=== PATIENT | male | born 1960 | race Caucasian/White ===

== ENCOUNTER 2017-09-13 18:18 | Observation (INO) ==
--- NOTE | 2017-09-13 19:57 | Emergency Department Note ---
Disposition Clinical Impression: Stage 1 chronic kidney disease Dyspnea Qualifiers: Dyspnea type: shortness of breath Qualified Code(s): R06.02 - Shortness of breath; R06.00 - Dyspnea, unspecified; R06.01 - Orthopnea Disposition: Admitted As Inpatient Condition: Undetermined Referrals: Silver Choi DO [Primary Care Provider] - Forms: ED Satisfaction Letter Time of Disposition: 20:45 SOB HPI - General Chief Complaint: ED Shortness of Breath/Dyspnea Stated Complaint: BRITTNI Time Seen by Provider: 09/13/17 19:39 Source: patient Mode of arrival: ambulatory Limitations: no limitations Nursing Notes Reviewed: Yes Vital Signs Reviewed: Yes - History of Present Illness 57-year-old male with history of atrial fibrillation, NM, CHF arrives [facility] emergency department complaining of shortness of breath after waking at roughly 4:30 in the morning. The patient states this feels like nothing he has experienced in the past. The patient denies any active chest pain but does admit to this difficulty breathing. The patient is not a diabetic complaints of no other concerns including no fevers, no chills, no abdominal pain, no chest pain, no unilateral leg swelling, no recent surgeries, no history of DVT or PE. Probably in the room at this time with an O2 saturation of 96% on room air. He is in no respiratory distress at this time. Pt Subjective Complaint: shortness of breath Onset (ago): day(s) (18) Severity: mild Consistency/Duration: intermittent Improves with: nothing Worsens with: nothing Known history of: congestive heart failure Treatment prior to arrival: none Cough present: No Sputum production: No - Related Data Home oxygen amount: none Home Medications Medication Instructions Recorded Confirmed Albuterol Sulfate [Albuterol 2 puff IH Q4HR PRN 06/20/15 08/18/16 Inhaler] Aspirin 81 mg PO DAILY 06/20/15 08/18/16 Atorvastatin [Lipitor] 80 mg PO DAILY 06/20/15 08/18/16 Diltiazem CD (24hr) [Cardizem CD] 240 mg PO QAM 06/20/15 08/18/16 Ipratropium/Albuterol Neb [Duoneb] 3 ml IH Q6HR PRN 06/20/15 08/18/16 Lisinopril [Zestril] 5 mg PO QAM 06/20/15 08/18/16 Metoprolol XL (24 HR) Succ [Toprol 25 mg PO QAM 06/20/15 08/18/16 XL] Tizanidine [Zanaflex] 4 mg PO QPM 06/20/15 08/18/16 Tiotropium [Spiriva] 1 puff IH DAILY 07/30/15 08/18/16 Cholecalciferol (D-3) [Vitamin D] 5,000 unit PO DAILY 08/18/16 08/18/16 Furosemide [Lasix] 40 mg PO DAILY 08/18/16 08/18/16 [place]-3/Dha/Epa/Fish Oil [[place] 3 500 mg PO DAILY 08/18/16 08/18/16 500 Softgel] Pantoprazole Sodium [Protonix] 40 mg PO DAILY 08/18/16 08/18/16 Tamsulosin HCl [Flomax] 0.4 mg PO DAILY 08/18/16 08/18/16 Ubidecarenone [Co Q10] 100 mg PO DAILY 08/18/16 08/18/16 Warfarin [Coumadin] 2 mg PO 3XW MDD SUN,THURS,SAT 08/18/16 08/18/16 Warfarin [Coumadin] 4 mg PO 4XW MDD MON,TUES,WED,FRI 08/18/16 08/18/16 Previous Rx's Medication Instructions Recorded Esomeprazole Magnesium [Nexium] 40 mg PO BID #60 09/30/15 Azithromycin [Azithromycin 6-Tab 250 mg PO PER PKG DI #6 tab 08/21/16 Pack] Warfarin [Coumadin] 3 mg PO QPM tablet 08/21/16 Albuterol Sulfate [Albuterol 2 puff IH Q4HR PRN #1 hfa.aer.ad 01/22/17 Inhaler] Azithromycin [Azithromycin 6-Tab 250 mg PO PER PKG DI #6 tab 01/22/17 Pack] predniSONE [PredniSONE] 60 mg PO ONCE #15 tablet 01/22/17 Albuterol Sulfate [Albuterol 1 puff IH Q6HR PRN #1 inhaler 05/13/17 Inhaler] Doxycycline 100 mg PO BID #14 capsule 05/13/17 predniSONE [PredniSONE] 60 mg PO DAILY #4 tablet 05/13/17 Allergies Allergy/AdvReac Type Severity Reaction Status Date / Time No Known Allergies Allergy Verified 05/13/17 05:08 All systems ED: reviewed and negative except as stated. Constitutional: Denies: fever, chills, weakness ENT ED: Denies: congestion Cardiovascular: Denies: chest pain Respiratory: Reports: dyspnea Gastrointestinal: Denies: abdominal pain, nausea, vomiting Genitourinary: Denies: urgency, dysuria Musculoskeletal: Denies: back pain Integumentary: Denies: rash Neurological: Denies: headache, weakness, numbness, paresthesias, confusion Past Medical History - Past Medical History Attestation: Yes The following information was validated with the patient. Source: patient, old records reviewed, obtained from family Medical history: Reports: arthritis, atrial fibrillation, cancer, COPD, coronary artery disease, GERD, GI bleed, hepatitis, hyperlipidemia, hypertension , kidney stones, liver disease, malignancy, myocardial infarction, renal disease Surgical history: Reports: angioplasty/stent, coronary bypass (CABG), other ( Status post bone spur surgery. Status post left thoracotomy decortication.) Psychiatric history: Reports: no psych history - Social History Smoking Status: Former smoker Smokeless Tobacco Status: No Alcohol use: Reports: none Drug use: Reports: none Physical Exam - General Limitations: no limitations General appearance: alert, in no apparent distress, appears intoxicated - Head Head exam: atraumatic, normocephalic, normal inspection - Eye Eye exam: Present: normal appearance, PERRL, EOMI - ENT ENT exam: normal exam, normal oropharynx, mucous membranes moist - Neck Neck exam: Present: normal inspection, full ROM, trachea midline - Chest Chest inspection: Present: normal inspection, symmetric chest wall rise - Respiratory Respiratory exam: Present: other (Course breath sounds to auscultation) - Cardiovascular Cardiovascular exam: Present: regular rate, irregular rhythm, normal heart sounds - Abdominal Exam Abdominal exam: Present: soft, Non-Tender. Absent: tenderness, distention, guarding, rebound, rigidity - Extremities Exam Extremities exam: Present: normal inspection, full ROM. Absent: tenderness, pedal edema - Neurological Exam Neurological exam: Present: alert, oriented X3 - Skin Skin exam: Present: warm, dry, intact, normal color Course Vital Signs Temperature 98.1 F 09/13/17 18:25 Pulse Rate 69 09/13/17 18:25 Respiratory Rate 16 09/13/17 18:25 Blood Pressure 138/75 11/16/17 18:25 O2 Sat by Pulse Oximetry 96 09/13/17 18:25 Temperature 98.1 F 09/13/17 18:25 Pulse Rate 68 09/13/17 20:24 Respiratory Rate 30 09/13/17 20:24 Blood Pressure 144/82 09/13/17 20:24 O2 Sat by Pulse Oximetry 97 09/13/17 20:24 Oxygen Delivery Oxygen Delivery Room Air Shortness of Breath/Dyspnea - MDM Narrative Medical decision making narrative: His workup here in the emergency department demonstrates no acute process. Given the patient has a history of NM with 2 stents placed back in 2011 or 2009 , we will admit the patient for ACS rule out. The patient's troponin is negative. Emergency department but he does have some nonspecific ST changes to include mild ST depression noted in the lateral leads that appears new from EKG from April 2017. Without any other acute findings, I am concerned about a ACS. We will admit the patient to the hospitalist service. The patient was accepted by Dr. Estevez. The patient agrees to plan. - Lab Data Lab results reviewed: Yes I reviewed the patient's lab results. Result diagrams: 09/13/17 20:00 09/13/17 20:00 Lab Results 09/13/17 09/13/17 09/13/17 Range/Units 20:00 20:00 20:00 WBC 5.8 (4.3-11.1) K/mcL RBC 4.28 (4.19-5.50) M/mcL Hgb 13.0 (12.9-16.9) g/dL Hct 37.6 (37.5-50.1) % MCV 87.9 (83.0-100.0) fL MCH 30.4 (28.0-33.3) pg MCHC 34.6 (31.6-35.5) g/dL RDW 13.6 (11.5-14.5) % Plt Count 141 (140-400) K/mcL MPV 10.3 (9.4-12.4) fL Immature Gran % 0.7 (0-4) % Seg Neutrophils % 65.9 % Lymphocytes % 21.3 % Monocytes % 8.3 % Eosinophils % 2.8 % Basophils % 1.0 % Neutrophils # 3.8 (1.6-8.9) K/mcL Lymphocytes # 1.2 (0.6-4.6) K/mcL Monocytes # 0.5 (0.0-1.3) K/mcL Eosinophils # 0.2 (0.0-0.6) K/mcL Basophils # 0.1 (0.0-0.2) K/mcL PT (9.4-12.1) Seconds INR APTT (26.0-36.0) Seconds Sodium 140 (136-145) mEq/L Potassium 3.8 (3.5-4.5) mEq/L Chloride 104 (98-109) mEq/L Carbon Dioxide 27 (19-29) mEq/L BUN 19 (8-26) mg/dL Creatinine 1.45 H (0.72-1.25) mg/dL Est GFR ( Amer) > 60 (> 60) Est GFR (Non-Af Amer) 50 L (> 60) BUN/Creatinine Ratio 13 (6-26) Glucose 94 (70-99) mg/dL Calculated Osmolality 292 (280-300) Calcium 9.3 (8.6-10.8) mg/dL Troponin I 0.01 (0-0.03) ng/mL 09/13/ Range/Units 20:00 WBC (4.3-11.1) K/mcL RBC (4.19-5.50) M/mcL Hgb (12.9-16.9) g/dL Hct (37.5-50.1) % MCV (83.0-100.0) fL MCH (28.0-33.3) pg MCHC (31.6-35.5) g/dL RDW (11.5-14.5) % Plt Count (140-400) K/mcL MPV (9.4-12.4) fL Immature Gran % (0-4) % Seg Neutrophils % % Lymphocytes % % Monocytes % % Eosinophils % % Basophils % % Neutrophils # (1.6-8.9) K/mcL Lymphocytes # (0.6-4.6) K/mcL Monocytes # (0.0-1.3) K/mcL Eosinophils # (0.0-0.6) K/mcL Basophils # (0.0-0.2) K/mcL PT 27.8 H (9.4-12.1) Seconds INR 2.5 APTT 40.4 H (26.0-36.0) Seconds Sodium (136-145) mEq/L Potassium (3.5-4.5) mEq/L Chloride (98-109) mEq/L Carbon Dioxide (19-29) mEq/L BUN (8-26) mg/dL Creatinine (0.72-1.25) mg/dL Est GFR ( Amer) (> 60) Est GFR (Non-Af Amer) (> 60) BUN/Creatinine Ratio (6-26) Glucose (70-99) mg/dL Calculated Osmolality (280-300) Calcium (8.6-10.8) mg/dL Troponin I (0-0.03) ng/mL - Radiology Data Radiology results reviewed: Yes I reviewed the patient's radiology results. - EKG Data EKG attestation: Yes I reviewed and interpreted this EKG. EKG results narrative: Heart rate 62 bpm. QTc 439 ms. Normal axis. Atrial fibrillation. No ST elevation but mild ST depression noted in leads V4 and V5 with nonspecific changes otherwise from EKG performed in 05/13/2017.
[2017-09-13] MEDS ORDERED: Aspirin 325 MG TABLET PO ONE (20:01)
[2017-09-13 20:11] LABS: Basophils # 0.1 K/mcL (0.0-0.2); Eosinophils # 0.2 K/mcL (0.0-0.6); Eosinophils % 2.8 %; Hematocrit 37.6 % (37.5-50.1); Immature Granulocytes % 0.7 % (0-4); Lymphocytes # 1.2 K/mcL (0.6-4.6); Lymphocytes % 21.3 %; Mean Corpuscular HGB Conc 34.6 g/dL (31.6-35.5); Mean Corpuscular Hemoglobin 30.4 pg (28.0-33.3); Mean Corpuscular Volume 87.9 fL (83.0-100.0); Mean Platelet Volume 10.3 fL (9.4-12.4); Monocytes # 0.5 K/mcL (0.0-1.3); Monocytes % 8.3 %; Neutrophils # 3.8 K/mcL (1.6-8.9); Platelet Count 141 K/mcL (140-400); Red Blood Count 4.28 M/mcL (4.19-5.50); Red Cell Distribution Width 13.6 % (11.5-14.5); Segmented Neutrophils % 65.9 %
--- NOTE | 2017-09-13 20:13 | Emergency Department Note ---
START Narrative - START START: I examined this patient and my medical decision-making was reviewed with the emergency medicine resident. I agree with the documented findings, disposition and treatment plan as described except to the extent set forth below. Patient seen with emergency medicine resident Dr. Maxim Sanchez, Please see a copy of his note for details of the H&P, ED evaluation, management and disposition. I have independently evaluated the patient and confirmed appropriate portions of the history and physical exam. Briefly: 57 year old male presents via private vehicle for shortness of breath and chest fluttering. History of atrial fibrillation. Patient has atrial fibrillation on EKG which is rate controlled. Portable chest x-ray reviewed at that site shows a left lower lobe effusion which is old per radiologist review. Patient's last stress test was at least 2011. Patient has been complaining of some chest pain and dyspnea on exertion as well. Patient will be worked up for cardiac and admitted to the hospitalist. Providing 30 minutes of critical care service for this patient. Admission disposition pending
[2017-09-13 20:16] LABS: INR 2.5; Prothrombin Time 27.8 Seconds (9.4-12.1)
[2017-09-13 20:19] LABS: Activated Partial Thrombo Time 40.4 Seconds (26.0-36.0)
[2017-09-13 20:24] LABS: BUN/Creatinine Ratio 13 (6-26); Blood Urea Nitrogen 19 mg/dL (8-26); Calcium 9.3 mg/dL (8.6-10.8); Carbon Dioxide 27 mEq/L (19-29); Chloride 104 mEq/L (98-109); Glucose 94 mg/dL (70-99); Osmolality,Calculated 292 (280-300); Potassium 3.8 mEq/L (3.5-4.5); Sodium 140 mEq/L (136-145); eGFR For African Americans > 60 (> 60); eGFR For Non-African Americans 50 (> 60)
[2017-09-13] MEDS ORDERED: *HR* OxyCODONE/APAP 5/325 TABLET PO PRN (22:36)
[2017-09-13] MEDS ORDERED: tiZANidine 4 MG TABLET PO PRN (22:36)
[2017-09-13] MEDS ORDERED: Fluticasone Propionate Nasal 50 MCG/SPRAY BOTTLE NS PRN (22:36)
[2017-09-13] MEDS ORDERED: traZODone 50 MG TABLET PO PRN (22:36)
[2017-09-13] MEDS ORDERED: Ipratropium/Albuterol Neb 3 ML IH PRN (22:36)
[2017-09-13] MEDS ORDERED: Naloxone 0.4 MG/ML INJ IVP PRN (22:39)
--- NOTE | 2017-09-13 23:03 | Internal Med History&Physical ---
<Zia Tamayo J - Last Filed: 09/13/17 23:26> Date of Encounter: 09/13/17 Time of Encounter: 23:00 Assessment and Plan (1) Acute exacerbation of chronic obstructive pulmonary disease (COPD) Current visit: Yes Status: Acute Inspiratory and expiratory wheezes with shortness of breath. Denies any chest pain cardiac workup negative thus far. Appears to have an acute exacerbation of COPD. CBC unremarkable. Does not appear to be exacerbated by infectious source. Hold off on prophylactic antibiotic therapy for now. EGD report from physician indicated concern for chest pain. The patient denies having any chest pain at all. However due to extensive cardiac history we will continue to trend troponin to rule out cardiac cause of shortness of breath. Continue albuterol, DuoNeb every 4 hours scheduled Solu-Medrol 40 mg IV push every 8 hours Continuous telemetry, continuous O2 monitoring (2) CAD (coronary artery disease) Current visit: Yes Status: Chronic Continue aspirin and statin Qualifiers: Coronary Disease-Associated Artery/Lesion type: [place] artery [place] vs. transplanted heart: [place] heart Associated angina: without angina Qualified Code(s): I25.10 - Atherosclerotic heart disease of [place] coronary artery without angina pectoris (3) A-fib Current visit: Yes Status: Chronic Stable rate control and 62. EKG. Continue Coumadin with pharmacy to dose, calcium channel damaris per home dose Qualifiers: Atrial fibrillation type: unspecified Qualified Code(s): I48.91 - Unspecified atrial fibrillation (4) HTN (hypertension) Current visit: Yes Status: Chronic Stable, continue valsartan, beta damaris, calcium channel damaris Qualifiers: Hypertension type: essential hypertension Qualified Code(s): I10 - Essential (primary) hypertension (5) DVT prophylaxis Current visit: Yes Status: Acute Continue Coumadin pharmacy to dose Internal Medicine - H&P: HPI Chief complaint: Acute shortness of breath Admitted From: Home Plans for Post Hospital Care: Home History of present illness: Mr. Lynch is a 57 year old male with a PMH of A. fib, CA requiring stent placement, CHF, COPD, CAD, HTN, and CABG. Presents to [facility] today with a chief complaint of shortness of breath which began approximately 4:30 this morning. Patient reports that he began experiencing intermittent fevers and chills with lightheadedness and shortness of breath. He also reports he has noticed some bilateral lower extremity swelling over the last week. Denies any diaphoresis, cough, chest pains, unilateral extremity tenderness or swelling, palpitations, tachycardia. BNP 204 troponin negative at 0.01. Due to extensive cardiac history he will be admitted and worked up to rule out ACS Past Med Surg Social Fam HX - Past Medical History Medical history: arthritis, atrial fibrillation, cancer, COPD, coronary artery disease, GERD, GI bleed, hepatitis, hyperlipidemia, hypertension, kidney stones , liver disease, malignancy, myocardial infarction, renal disease Psychiatric history: no psych history - Past Surgical History Surgical History: angioplasty/stent, coronary bypass (CABG), other (Status post bone spur surgery. Status post left thoracotomy decortication.) - Social History Smoking Status: Former smoker Smokeless Tobacco Status: No Alcohol use: none Drug use: none - Family History Father Adopted: No Living Status: Hx Family Cardiac Disorders: Yes (mi) Hx Family Respiratory Disorders: No Hx Family Cancer: Yes (Lung) Hx Family GI Disorders: No Hx Family Endocrine Disorder: No Hx Family Neuromuscular Disorders: No Hx Family Neurologic Disorders: No Hx Family HEENT Disorders: No Hx Family Autoimmune Disorders: No Mother Hx Family Endocrine Disorder: Yes (Diabetes) Internal Medicine - H&P: Meds Aspirin 81 mg PO DAILY 06/20/15 [History] Diltiazem CD (24hr) [Cardizem CD] 240 mg PO QAM 06/20/15 [History] Ipratropium/Albuterol Neb [Duoneb] 3 ml IH Q6HR PRN 06/20/15 [History] Metoprolol XL (24 HR) Succ [Toprol XL] 25 mg PO QAM 06/20/15 [History] Tizanidine [Zanaflex] 4 mg PO Q8H PRN 06/20/15 [History] Tiotropium [Spiriva] 18 mcg IH DAILY 07/30/15 [History] Esomeprazole Magnesium [Nexium] 40 mg PO BID #60 09/30/15 [Rx] Pantoprazole Sodium [Protonix] 40 mg PO DAILY 08/18/16 [History] Tamsulosin HCl [Flomax] 0.4 mg PO DAILY 08/18/16 [History] Warfarin [Coumadin] 2 mg PO ORTEZ 08/18/16 [History] Warfarin [Coumadin] 4 mg PO [id number] 10/21/16 [History] Albuterol Sulfate [Albuterol Inhaler] 2 puff IH Q4HR PRN #1 hfa.aer.ad 01/22/17 [Rx] Atorvastatin Calcium [Lipitor] 80 mg PO HS 09/13/17 [History] Fluticasone Propionate Nasal [Flonase] 50 mcg NS DAILY PRN 09/13/17 [History] OxyCODONE/APAP 5/325 [Percocet 5/325 MG] 1 each PO Q6H PRN 09/13/17 [History] Valsartan [Diovan] 40 mg PO DAILY 09/13/17 [History] traZODone [TraZODone] 50 mg PO HS PRN 09/13/17 [History] 3 Allergy/AdvReac Type Severity Reaction Status Date / Time No Known Allergies Allergy Verified 05/13/17 05:08 All Systems PM: A 10-system review of systems was performed and is negative for pertinent findings except as documented above in the HPI. - Constitutional Constitutional: as per HPI, chills, fever(s), no fatigue, no night sweats - EENT Eyes: no change in vision, no discharge, no pain, no photophobia Ears: no ear discharge, no ear pain, no tinnitus Nose, mouth and throat: no dysphagia, no nasal discharge, no neck pain, no sore throat - Cardiovascular Cardiovascular ROS IM: no chest pain, no diaphoresis, no dyspnea, no lightheadedness, no palpitations, no syncope - Respiratory Respiratory: dyspnea, no cough, no hemoptysis, no wheezing, no pain on inspiration, no chest congestion, no excessive phlegm production, no pain with cough - Gastrointestinal Gastrointestinal: no abdominal pain, no diarrhea, no hematemesis, no hematochezia, no melena, no nausea, no vomiting - Musculoskeletal Musculoskeletal ROS IM: no numbness, no tingling - Integumentary Integumentary IM: no rash, no unusual bruising - Neurological Neurological ROS: no confusion, no convulsions, no focal weakness, no numbness, no tingling, no tremor(s) - Hematologic/Lymphatic Hematologic/Lymphatic: no easy bruising - Constitutional Vitals: Temp Pulse Resp BP Pulse Ox 98.1 F 68 10 144/82 97 09/13/17 18:25 09/13/17 20:24 09/13/17 21:35 09/13/17 21:35 09/13/17 20:24 General appearance: Present: cooperative, A&O X 3, no acute distress, answers questions appropriately - Head Head exam: Present: atraumatic, normocephalic - Eye Eye exam: Present: PERRL, conjuntiva pink, sclera anicteric Pupils: Present: PERRL - Neck Neck exam general surgery: Present: supple, trachea midline. Absent: lymphadenopathy - Respiratory Respiratory exam: Present: decreased breath sounds, CTAB, prolonged expiratory phase, wheezes (Inspiratory and expiratory). Absent: accessory muscle use, rales, respiratory distress, rhonchi, tachypnea - Cardiovascular Cardiovascular exam: Present: RRR, +S1, +S2. Absent: diastolic murmur, gallop, rubs, systolic murmur - GI/Abdominal GI/Abdominal exam: Present: normal bowel sounds, soft, no peritoneal signs. Absent: distended, tenderness - Extremities Exam Extremities exam: Present: warm, radial pulses palpable and symmetrical. Absent : calf tenderness, cyanotic, pedal edema - Neurological Exam Neurological exam: Present: CN II-XII intact, oriented X3, no focal deficits. Absent: pronater drift, facial droop, speech deficit - Skin Skin exam: Present: dry, intact Internal Med - H&P Results - Labs CBC & Chem 7: 09/13/17 20:00 09/13/17 20:00 - EKG Data -: EKG Interpreted by Myself - EKG Data Prior EKG available for review: yes EKG comments: Atrial fibrillation rate control her rate is 62 09/13/17 23:07 - Diagnostic Studies Chest x-ray Status: image reviewed by me Additional comments: Blunting of costophrenic sulcus likely scarring <Marianela Liao - Last Filed: 09/14/17 04:07> Date of Encounter: 09/14/17 Internal Medicine - H&P: HPI History of present illness: Mr. Lynch is a 57 year old male All Systems PM: A 10-system review of systems was performed and is negative for pertinent findings except as documented above in the HPI. - Constitutional Vitals: Temp Pulse Resp BP Pulse Ox 97.9 F 77 16 101/60 95 09/14/17 03:04 09/14/17 03:04 09/14/17 03:04 09/14/17 03:04 09/14/17 03:04 Internal Med - H&P Results - Labs CBC & Chem 7: 09/14/17 02:42 09/14/17 02:42 Labs: Short CBC 09/14/17 Range/Units 02:42 WBC 6.2 (4.3-11.1) K/mcL Hgb 12.6 L (12.9-16.9) g/dL Hct 36.4 L (37.5-50.1) % Plt Count 126 L (140-400) K/mcL Neutrophils # 5.2 (1.6-8.9) K/mcL BMP 09/14/17 02:42 Sodium 140 Potassium 3.9 Chloride 106 Carbon Dioxide 27 BUN 18 Creatinine 1.47 H Glucose 124 H Calcium 8.9 Cardiac Enzymes 09/14/17 Range/Units 02:42 Troponin I 0.01 (0-0.03) ng/mL Liver Function 09/14/17 Range/Units 02:42 Total Bilirubin 0.9 (0.2-1.2) mg/dL AST 17 (5-34) Units/L ALT 19 (0-55) Units/L Alkaline Phosphatase 92 (38-126) Units/L Albumin 3.8 (3.5-5.0) g/dL - Attending Attestation I have seen and examined the patient independently. I have discussed with CHIP MACHINE OPERATOR Mr Tamayo regarding the management plan. Agree with the documentation. Pt has increased SOB from AM. Denies chest pain. Hx of COPD. Will treat pt as COPD exacerbation.
[2017-09-13] MEDS ORDERED: methylPREDNISolone 125 MG/2 ML VIAL IVP ONE (23:24)
[2017-09-13] MEDS: Ipratropium/Albuterol Neb 3 ML IH SCH (23:42)
[2017-09-14] MEDS ORDERED: MethylPREDNISolone 40 MG/ML VIAL IVP SCH
[2017-09-14 03:13] LABS: Basophils % 0.3 %; Eosinophils # 0.1 K/mcL (0.0-0.6); Hematocrit 36.4 % (37.5-50.1); Hemoglobin 12.6 g/dL (12.9-16.9); Immature Granulocytes % 0.3 % (0-4); Immature Platelets 3.2 % (1.1-6.1); Lymphocytes # 0.7 K/mcL (0.6-4.6); Mean Corpuscular HGB Conc 34.6 g/dL (31.6-35.5); Mean Corpuscular Hemoglobin 30.4 pg (28.0-33.3); Mean Corpuscular Volume 87.7 fL (83.0-100.0); Mean Platelet Volume 10.4 fL (9.4-12.4); Monocytes # 0.2 K/mcL (0.0-1.3); Monocytes % 2.6 %; Neutrophils # 5.2 K/mcL (1.6-8.9); Platelet Count 126 K/mcL (140-400); Red Blood Count 4.15 M/mcL (4.19-5.50); Red Cell Distribution Width 13.6 % (11.5-14.5); Segmented Neutrophils % 83.8 %
[2017-09-14 03:22] LABS: INR 3.1
[2017-09-14 03:32] LABS: Albumin 3.8 g/dL (3.5-5.0); Albumin/Globulin Ratio 1.6 (1.1-2.2); Bilirubin,Total 0.9 mg/dL (0.2-1.2); Calcium 8.9 mg/dL (8.6-10.8); Chol/HDL Ratio 4.8 (0-4.9); Globulin 2.4 g/dL (2.4-3.5); Potassium 3.9 mEq/L (3.5-4.5); Total Protein 6.2 g/dL (6.0-8.3)
[2017-09-14] MEDS: Ipratropium/Albuterol Neb 3 ML IH SCH ×6 (03:44→23:09)
[2017-09-14] MEDS: Diltiazem CD (24hr) 240 MG CAPSULE PO SCH (08:10)
[2017-09-14] MEDS: Metoprolol XL (24 HR) Succ 25 MG TAB.ER.24H PO SCH (08:10)
[2017-09-14] MEDS: Aspirin 81 MG TAB.CHEW PO SCH (08:10)
[2017-09-14] MEDS: MethylPREDNISolone 40 MG/ML VIAL IVP SCH ×2 (08:10→14:50)
[2017-09-14] MEDS: Valsartan 80 MG TABLET PO SCH (08:11)
[2017-09-14] MEDS ORDERED: Tiotropium 18 MCG inhalation IH SCH (09:00)
--- NOTE | 2017-09-14 16:28 | Internal Med Progress Note ---
Date of Encounter: 09/14/17 Time of Encounter: 16:25 - Assessment and plan (1) Acute exacerbation of chronic obstructive pulmonary disease (COPD) Current Visit: Yes Status: Acute Assessment and plan: Barry Lynch is a 57-year-old male with past medical history CAD, A. fib, COPD and hepatitis C who presented to [facility] on 09/13/2017 with complaints of shortness of breath. He was placed in observation status for acute COPD exacerbation. 1. COPD exacerbation: Suspected. Presented with worsening shortness of breath and wheezing. D-dimer negative, symptoms significantly improved with steroids and breathing treatments. No increase in sputum production, afebrile, no elevated WBC. No indication for ATB at this time. Cont IV steroids, nebs. Echo pending 2. Atrial fibrillation: per hx. Heart rate intermittently into low 100s. Overall rate controlled. Continue home CCB, BB. Pharmacy to dose Coumadin. 3. CAD: per hx. asymptomatic. Denies chest pain. Serial troponin negative. Continue ASA, BB, statin 4. Hepatits C: per hx. of LFTs normal. With abdominal distention/discomfort. ABD CT pending 5. CKD: per hx. Cr 1.4 which is slightly increased from baseline. Gentle IV fluids, avoid nephrotoxic agents as possible. Monitor repeat renal function. 5. DVT prophylaxis: Coumadin (2) A-fib Current Visit: Yes Status: Chronic Qualifiers: Atrial fibrillation type: unspecified Qualified Code(s): I48.91 - Unspecified atrial fibrillation (3) CAD (coronary artery disease) Current Visit: Yes Status: Chronic Qualifiers: Coronary Disease-Associated Artery/Lesion type: [place] artery [place] vs. transplanted heart: [place] heart Associated angina: without angina Qualified Code(s): I25.10 - Atherosclerotic heart disease of [place] coronary artery without angina pectoris (4) Hepatitis C Current Visit: No Status: Chronic Qualifiers: Viral hepatitis chronicity: chronic Hepatic coma status: without hepatic coma Qualified Code(s): B18.2 - Chronic viral hepatitis C - Subjective Interval history: Seen and examined at bedside, patient is new to me. Information obtained from chart review and patient report. Patient says he feels significantly improved although he does still have some intermittent shortness of breath abdominal pain. No chest pain. - Constitutional Vitals: Temp Pulse Resp BP Pulse Ox 97.8 F 94 95 117/77 97 09/14/17 15:13 09/14/17 15:13 09/14/17 16:13 09/14/17 15:13 09/14/17 16:13 General appearance: Present: cooperative, A&O X 3, morbidly obese, no acute distress, answers questions appropriately - Head Head exam: Present: atraumatic, normocephalic - Eye Eye exam: Present: PERRL, conjuntiva pink, sclera anicteric Pupils: Present: PERRL - Neck Neck exam general surgery: Present: supple, trachea midline. Absent: lymphadenopathy - Respiratory Respiratory exam: Present: CTAB. Absent: accessory muscle use, rales, rhonchi, wheezes - Cardiovascular Cardiovascular exam: Present: RRR, +S1, +S2. Absent: diastolic murmur, gallop, rubs, systolic murmur - GI/Abdominal GI/Abdominal exam: Present: normal bowel sounds, soft, no peritoneal signs. Absent: distended, tenderness - Extremities Exam Extremities exam: Present: warm, radial pulses palpable and symmetrical. Absent : calf tenderness, cyanotic, pedal edema - Neurological Exam Neurological exam: Present: CN II-XII intact, oriented X3, no focal deficits. Absent: pronater drift, facial droop, speech deficit - Skin Skin exam: Present: dry, intact Internal Medicine: Result - Labs CBC & Chem 7: 09/14/17 02:42 09/14/17 02:42 Labs: Short CBC 09/14/17 Range/Units 02:42 WBC 6.2 (4.3-11.1) K/mcL Hgb 12.6 L (12.9-16.9) g/dL Hct 36.4 L (37.5-50.1) % Plt Count 126 L (140-400) K/mcL Neutrophils # 5.2 (1.6-8.9) K/mcL BMP 09/14/17 02:42 Sodium 140 Potassium 3.9 Chloride 106 Carbon Dioxide 27 BUN 18 Creatinine 1.47 H Glucose 124 H Calcium 8.9 Cardiac Enzymes 09/14/17 09/14/17 Range/Units 02:42 08:27 Troponin I 0.01 0.01 (0-0.03) ng/mL Liver Function 09/14/17 Range/Units 02:42 Total Bilirubin 0.9 (0.2-1.2) mg/dL AST 17 (5-34) Units/L ALT 19 (0-55) Units/L Alkaline Phosphatase 92 (38-126) Units/L Albumin 3.8 (3.5-5.0) g/dL - ABG Interpretation ABG results: PT/INR, D-dimer PT 34.0 Seconds (9.4-12.1) H 09/14/17 02:42 D-Dimer < 215 ng/mLFEU (0-500) 09/14/17 13:21 Consult Discharge Plan - Plan Referrals: Silver Choi DO [Primary Care Provider] -
[2017-09-14] MEDS ORDERED: Warfarin perPT PO PRN (18:00)
--- NOTE | 2017-09-14 18:16 | Electrocardiograph Report ---
[place] [id number] Test Date: 2017-09-13 Pat Name: Barry Lynch Department: 104 Room: 3B39 Gender: M Commercial Sales Director: AM : 1960 Requested By: Peter Mcghee Order Number: [id number] Reading MD: Cristian Acuña MD Measurements Intervals [place] Rate: 62 P: [place]: 0 QRS: 41 QRSD: 102 T: 28 QT: 433 QTc: 439 Interpretive Statements ATRIAL FIBRILLATION Electronically Signed On 09-14-2017 18:14:27 EST by Cristian Acuña MD
[2017-09-14] MEDS: 0.9 % Sodium Chloride 1,000 ML IVC SCH (19:39)
[2017-09-15] MEDS: MethylPREDNISolone 40 MG/ML VIAL IVP SCH ×4 (00:06→23:21)
[2017-09-15 03:35] LABS: Hematocrit 35.1 % (37.5-50.1); Hemoglobin 12.1 g/dL (12.9-16.9); Mean Corpuscular HGB Conc 34.5 g/dL (31.6-35.5); Mean Corpuscular Hemoglobin 30.1 pg (28.0-33.3); Mean Corpuscular Volume 87.3 fL (83.0-100.0); Mean Platelet Volume 10.9 fL (9.4-12.4); Platelet Count 133 K/mcL (140-400); Red Blood Count 4.02 M/mcL (4.19-5.50); Red Cell Distribution Width 13.4 % (11.5-14.5)
[2017-09-15 03:37] LABS: INR 3.6; Prothrombin Time 39.8 Seconds (9.4-12.1)
[2017-09-15 03:50] LABS: Calcium 9.1 mg/dL (8.6-10.8); Potassium 4.3 mEq/L (3.5-4.5)
[2017-09-15] MEDS: Ipratropium/Albuterol Neb 3 ML IH SCH ×6 (04:06→23:31)
[2017-09-15] MEDS: Aspirin 81 MG TAB.CHEW PO SCH (08:23)
[2017-09-15] MEDS: Metoprolol XL (24 HR) Succ 25 MG TAB.ER.24H PO SCH (08:23)
[2017-09-15] MEDS: Valsartan 80 MG TABLET PO SCH (08:23)
[2017-09-15] MEDS: Diltiazem CD (24hr) 240 MG CAPSULE PO SCH (08:24)
[2017-09-15] MEDS: 0.9 % Sodium Chloride 1,000 ML IVC SCH (14:24)
[2017-09-15] MEDS ORDERED: Menthol 9.1 MG LOZENGE PO PRN (15:29)
[2017-09-15] MEDS ORDERED: Metoclopramide 10 MG/2 ML VIAL IVP PRN (16:00)
--- NOTE | 2017-09-15 16:01 | Internal Med Progress Note ---
Date of Encounter: 09/15/17 Time of Encounter: 15:55 - Assessment and plan (1) Acute exacerbation of chronic obstructive pulmonary disease (COPD) Current Visit: Yes Status: Acute Assessment and plan: Barry Lynch is a 57-year-old male with past medical history CAD, A. fib, COPD and hepatitis C who presented to [facility] on 09/13/2017 with complaints of shortness of breath. He was placed in observation status for acute COPD exacerbation. 1. COPD exacerbation: Suspected. Presented with worsening shortness of breath and wheezing. D-dimer negative, symptoms significantly improved with steroids and breathing treatments. No increase in sputum production, afebrile, no elevated WBC. No indication for ATB at this time. Cont IV steroids, nebs. 2. Atrial fibrillation: per hx. Heart rate intermittently into low 100s. Overall rate controlled. Continue home CCB, BB. Pharmacy to dose Coumadin. INR 3.6 on 09/15, coumadin on hold 3. CAD: per hx. asymptomatic. Denies chest pain. Serial troponin negative. Continue ASA, BB, statin 4. Hepatits C: per hx. of LFTs normal. 5. CKD: per hx. Cr 1.4 which is slightly increased from baseline. No improvement with gentle IV fluids. Stop home ARB. Continue IV fluids, monitor repeat renal function. 5. DVT prophylaxis: Coumadin 6. Hiatal hernia: Patient reports inability to lay flat after eating due to regurgitation and/or reflux. ABD CT with redemonstration of hiatal hernia and fluid filled distal esophagus possibly indicating dysmotility and/or reflux. Increase PPI, trial IV Reglan. Will need to follow-up with GI outpatient to rule out a mass. 7. Hypertension: Per history. BP borderline/soft. Home ARB stop with SOPHIA. Monitor BP and initiate low-dose amlodipine if needed. (2) A-fib Current Visit: Yes Status: Chronic Qualifiers: Atrial fibrillation type: unspecified Qualified Code(s): I48.91 - Unspecified atrial fibrillation (3) CAD (coronary artery disease) Current Visit: Yes Status: Chronic Qualifiers: Coronary Disease-Associated Artery/Lesion type: [place] artery [place] vs. transplanted heart: [place] heart Associated angina: without angina Qualified Code(s): I25.10 - Atherosclerotic heart disease of [place] coronary artery without angina pectoris (4) Hepatitis C Current Visit: No Status: Chronic Qualifiers: Viral hepatitis chronicity: chronic Hepatic coma status: without hepatic coma Qualified Code(s): B18.2 - Chronic viral hepatitis C - Subjective Interval history: Seen and examined at bedside; says he feels better and would like to discharge home today. I discussed with him the slight increase in his renal function despite being on IV fluids and that his BP medication was stopped. He is agreeable to stay overnight for continued monitoring. He denies shortness of breath, no chest pain. Still says he cannot lay flat without regurgitation or acid reflux. - Constitutional Vitals: Temp Pulse Resp BP Pulse Ox 98.7 F 90 18 133/74 95 09/15/17 15:05 09/15/17 15:05 09/15/17 15:05 09/15/17 15:05 09/15/17 15:05 General appearance: Present: cooperative, A&O X 3, morbidly obese, no acute distress, answers questions appropriately - Head Head exam: Present: atraumatic, normocephalic - Eye Eye exam: Present: PERRL, conjuntiva pink, sclera anicteric Pupils: Present: PERRL - Neck Neck exam general surgery: Present: supple, trachea midline. Absent: lymphadenopathy - Respiratory Respiratory exam: Present: CTAB. Absent: accessory muscle use, rales, rhonchi, wheezes - Cardiovascular Cardiovascular exam: Present: RRR, +S1, +S2. Absent: diastolic murmur, gallop, rubs, systolic murmur - GI/Abdominal GI/Abdominal exam: Present: normal bowel sounds, soft, no peritoneal signs. Absent: distended, tenderness - Extremities Exam Extremities exam: Present: warm, radial pulses palpable and symmetrical. Absent : calf tenderness, cyanotic, pedal edema - Neurological Exam Neurological exam: Present: CN II-XII intact, oriented X3, no focal deficits. Absent: pronater drift, facial droop, speech deficit - Skin Skin exam: Present: dry, intact Internal Medicine: Result - Labs CBC & Chem 7: 09/15/17 02:32 09/15/17 02:32 Labs: Short CBC 09/15/17 Range/Units 02:32 WBC 8.8 (4.3-11.1) K/mcL Hgb 12.1 L (12.9-16.9) g/dL Hct 35.1 L (37.5-50.1) % Plt Count 133 L (140-400) K/mcL BMP 09/15/17 02:32 Sodium 137 Potassium 4.3 Chloride 106 Carbon Dioxide 23 BUN 25 Creatinine 1.53 H Glucose 210 H Calcium 9.1 - ABG Interpretation ABG results: PT/INR, D-dimer PT 39.8 Seconds (9.4-12.1) H 09/15/17 02:32 D-Dimer < 215 ng/mLFEU (0-500) 09/14/17 13:21 - Impressions Impressions Echocardiogram 09/14/17 13:09 Impressions: LVEF 55-60%. Severely dilated left atrium. Indeterminate diastolic function. No significant valvular dysfunction. Left Ventricular Wall Motion: Rest Echo Findings All wall segments showed normal motion. Findings: Study Quality * Technically adequate exam. Right Ventricle * Normal right ventricular structure and function. Aortic Valve * Trileaflet aortic valve with normal function. Mitral Valve * Mild mitral regurgitation. * Normal mitral valve structure. * No mitral stenosis. Interatrial Septum * No evidence of PFO by color Doppler. Aorta * Normally sized aortic root. Pericardium * The pericardium appears normal. Tricuspid Valve * No tricuspid stenosis. * Mild tricuspid regurgitation. * Estimated RVSP is 33 mmHg. Left Ventricle * LVEF 55-60%. * Indeterminate diastolic function. ECG Findings * Atrial fibrillation. Left Atrium * Severely dilated left atrium. Right Atrium * Mildly dilated right atrium. IVC * The IVC is not well evaluated. Abdomen/Pelvis CT 09/14/17 16:29 IMPRESSION: Fluid-filled distal esophagus and small hiatal hernia, the former which may indicate dysmotility and/or reflux. No bowel obstruction. Stomach is mildly distended. Nuclear medicine gastric emptying study could assess for delayed emptying if indicated clinically. Unchanged findings at the lung bases, including chronic small left pleural effusion with pleural thickening and rounded atelectasis at the right lung base. Unchanged splenomegaly. D/ /14/2017 21:04:22 Alonso Boyce / Ximena Dukes Interpreting Provider: Alonso Boyce Consult Discharge Plan - Plan Referrals: Silver Choi DO [Primary Care Provider] - (Appointment has been webrequested. Our offices will call you with an appointment time and date. Thank You.)
[2017-09-16] MEDS: Ipratropium/Albuterol Neb 3 ML IH SCH ×2 (03:57→07:58)
[2017-09-16 04:25] LABS: Hematocrit 33.5 % (37.5-50.1); Hemoglobin 11.4 g/dL (12.9-16.9); Mean Corpuscular Hemoglobin 30.7 pg (28.0-33.3); Mean Corpuscular Volume 90.3 fL (83.0-100.0); Mean Platelet Volume 10.8 fL (9.4-12.4); Platelet Count 137 K/mcL (140-400); Red Blood Count 3.71 M/mcL (4.19-5.50); Red Cell Distribution Width 13.8 % (11.5-14.5)
[2017-09-16 04:28] LABS: INR 3.1; Prothrombin Time 34.3 Seconds (9.4-12.1)
[2017-09-16 04:36] LABS: BUN/Creatinine Ratio 18 (6-26); Blood Urea Nitrogen 23 mg/dL (8-26); Calcium 9.4 mg/dL (8.6-10.8); Carbon Dioxide 24 mEq/L (19-29); Chloride 107 mEq/L (98-109); Glucose 156 mg/dL (70-99); Osmolality,Calculated 293 (280-300); Potassium 4.4 mEq/L (3.5-4.5); Sodium 138 mEq/L (136-145); eGFR For African Americans > 60 (> 60); eGFR For Non-African Americans 59 (> 60)
[2017-09-16 07:41] VITALS: BP 104/71
[2017-09-16] MEDS: Diltiazem CD (24hr) 240 MG CAPSULE PO SCH (07:52)
[2017-09-16] MEDS: MethylPREDNISolone 40 MG/ML VIAL IVP SCH (07:52)
[2017-09-16] MEDS: Aspirin 81 MG TAB.CHEW PO SCH (07:52)
[2017-09-16] MEDS: Metoprolol XL (24 HR) Succ 25 MG TAB.ER.24H PO SCH (07:52)
--- NOTE | 2017-09-16 08:28 | Discharge Summary ---
Date of Encounter: 09/16/17 Time of Encounter: 08:24 - Discharge Diagnosis (1) Acute exacerbation of chronic obstructive pulmonary disease (COPD) Priority: Primary Status: Acute Comments: Barry Lynch is a 57-year-old male with past medical history CAD, A. fib, COPD , HTN, hepatitis C and lymphoma who presented to [facility] on 09/13/2017 with complaints of shortness of breath. He was placed in observation status for acute COPD exacerbation. 1. COPD exacerbation: Suspected. Presented with worsening shortness of breath and wheezing. D-dimer negative, symptoms significantly improved with steroids and breathing treatments. No increase in sputum production, afebrile, no elevated WBC. No indication for ATB. Steroid burst at discharge. Recommend follow-up with PCP within 5-7 days 2. Hiatal hernia: patient reports inability to lay flat after eating due to regurgitation and/or reflux. 09/2015 EGD showed large hiatal hernia and likely benign gastric tumor. 08/[address] with redemonstration of hiatal hernia and fluid filled distal esophagus possibly indicating dysmotility and/or reflux. Symptoms improved with increasing PPI and Reglan. Cont increased PPI and regaln at discharge. Will need to follow-up with GI outpatient for repeat EGD ( web request submitted). 3. CKD: per hx. Cr 1.5 which is increased from baseline. Imporved with IV fluids and stopping ARB. Cr 1.2 at discharge 4. Hypertension: Per history. BP borderline/soft but stable. Home ARB stopped with SOPHIA. Cont BB, CCB. Recommend follow-up with PCP within one week for BP recheck. 5. Atrial fibrillation: per hx. Heart rate intermittently into low 100s. Overall rate controlled. Continue home CCB, BB, coumadin. INR 3.1 at discharge. Patient advised to hold coumadin. INR re-check 09/17/17 at anticoagulation clinic 6. CAD: per hx. asymptomatic. Denies chest pain. Serial troponin negative. Continue ASA, BB, statin 7. Hepatits C: per hx. LFTs normal. 8. Lymphoma of the spine: per hx in 2000; treated with surgical resection and aggressive chemo. Can follow-up with Oncology as needed. (2) A-fib Priority: Secondary Status: Chronic Qualifiers: Atrial fibrillation type: unspecified Qualified Code(s): I48.91 - Unspecified atrial fibrillation (3) CAD (coronary artery disease) Priority: Secondary Status: Chronic Qualifiers: Coronary Disease-Associated Artery/Lesion type: [place] artery [place] vs. transplanted heart: [place] heart Associated angina: without angina Qualified Code(s): I25.10 - Atherosclerotic heart disease of [place] coronary artery without angina pectoris (4) Hepatitis C Priority: Secondary Status: Chronic Qualifiers: Viral hepatitis chronicity: chronic Hepatic coma status: without hepatic coma Qualified Code(s): B18.2 - Chronic viral hepatitis C (5) Esophageal dysmotility Priority: Primary Status: Acute (6) Hypertension Priority: Primary Status: Chronic Qualifiers: Hypertension type: essential hypertension Qualified Code(s): I10 - Essential (primary) hypertension - Discharge Medications Prescriptions: Fluticasone Propionate Nasal [Flonase] 50 mcg NS DAILY PRN #1 bottle PRN Reason: Allergy Symptoms Metoclopramide [Reglan] 10 mg PO TIDAC #90 tablet Omeprazole [PriLOSEC] 40 mg PO BIDAC #60 capsule. predniSONE [PredniSONE] 40 mg PO DAILY #10 tablet predniSONE [PredniSONE] 40 mg PO DAILY #10 tablet Home Medications: Aspirin 81 mg PO DAILY 06/20/15 [History] Diltiazem CD (24hr) [Cardizem CD] 240 mg PO QAM 06/20/15 [History] Ipratropium/Albuterol Neb [Duoneb] 3 ml IH Q6HR PRN 06/20/15 [History] Metoprolol XL (24 HR) Succ [Toprol XL] 25 mg PO QAM 06/20/15 [History] Tizanidine [Zanaflex] 4 mg PO Q8H PRN 06/20/15 [History] Tiotropium [Spiriva] 18 mcg IH DAILY 07/30/15 [History] Tamsulosin HCl [Flomax] 0.4 mg PO DAILY 08/18/16 [History] Albuterol Sulfate [Albuterol Inhaler] 2 puff IH Q4HR PRN #1 hfa.aer.[id number] 01/22/17 [Rx] Atorvastatin Calcium [Lipitor] 80 mg PO HS 09/13/17 [History] OxyCODONE/APAP 5/325 [Percocet 5/325 MG] 1 each PO Q6H PRN 09/13/17 [History] traZODone [TraZODone] 50 mg PO HS PRN 09/13/17 [History] Fluticasone Propionate Nasal [Flonase] 50 mcg NS DAILY PRN #1 bottle 09/16/17 [ Rx] Metoclopramide [Reglan] 10 mg PO TIDAC #90 tablet 09/16/17 [Rx] Omeprazole [PriLOSEC] 40 mg PO BIDAC #60 capsule. 09/16/17 [Rx] Warfarin [Coumadin] 2 mg PO ORTEZ #0 09/16/17 [Rx] Warfarin [Coumadin] 4 mg PO MOTUWETHFRSA #0 09/16/17 [Rx] predniSONE [PredniSONE] 40 mg PO DAILY #10 tablet 09/16/17 [Rx] predniSONE [PredniSONE] 40 mg PO DAILY #10 tablet 09/16/17 [Rx] Allergies/Adverse Reactions: 3 Allergy/AdvReac Type Severity Reaction Status Date / Time No Known Allergies Allergy Verified 05/13/17 05:08 Procedures/tests Complete & Pending: Procedures Performed prior 72 hours Category Date Time Status CT abd pelvis wo no iv no oral [CT] Routine Cat Scan 09/14/17 16:29 Draft EV echocardiogram Routine Y 09/14/17 13:09 Completed Date of admission: 09/13/17 21:11 Primary care physician: Bjorn Donato Discharging clinician: Daksha Mcdonald Anticipated date of discharge: 09/16/17 - Patient Status Disposition: Home, Self-Care Condition: Good Functional capacity at discharge: independent ambulation Overall status at discharge: patient is back to baseline - Discharge Instructions Instructions: Chronic Obstructive Pulmonary Disease (DC), Prednisolone (By mouth), Hiatal Hernia (DC), Gastroesophageal Reflux Disease (DC), Metoclopramide (By mouth) Follow Up With: Silver Choi DO [Primary Care Provider] - (Appointment has been webrequested. Our offices will call you with an appointment time and date. Thank You.) Deshawn Aviles MD [Partnered Physician] - (patient reports inability to lay flat after eating due to regurgitation and/or reflux. 09/2015 EGD showed large hiatal hernia and likley benign gastric tumor. 08/[address] with redemonstration of hiatal hernia and fluid filled distal esophagus possibly indicating dysmotility and/or reflux. Symptoms improved with increasing PPI and Reglan. ) Additional Instructions: Please call your PCP within 24 hours or next business day schedule follow-up appointment within 1 week. Hold Coumadin tonight and have your INR checked at the Coumadin clinic on 2016. An appointment with Gastroenterology has been requested for you. If you do not hear from their office within 2 weeks please call them at [phone] - Diet and Activity Activity: increase activity as tolerated Diet: advance to your usual diet Interval History: Seen and examined at bedside. Patient say he feels better and wants to go home today. Had an uneventful night. Says Reglan was effective, he was able to lay flat without regurgitation/reflux. Denies shortness of breath. Chest pain Hospital course: See assessment and plan for hospital course - Time Spent with Patient Total time spent providing and/or coordinating discharge services: - Constitutional Vitals: Temp Pulse Resp BP Pulse Ox 97.8 F 91 16 104/71 96 09/16/17 07:39 09/16/17 07:39 09/16/17 07:58 09/16/17 07:39 09/16/17 07:58 General appearance: Present: cooperative, A&O X 3, morbidly obese, no acute distress, answers questions appropriately - Head Head exam: Present: atraumatic, normocephalic - Eye Eye exam: Present: PERRL, conjuntiva pink, sclera anicteric Pupils: Present: PERRL - Neck Neck exam general surgery: Present: supple, trachea midline. Absent: lymphadenopathy - Respiratory Respiratory exam: Present: CTAB. Absent: accessory muscle use, rales, rhonchi, wheezes - Cardiovascular Cardiovascular exam: Present: RRR, +S1, +S2. Absent: diastolic murmur, gallop, rubs, systolic murmur - GI/Abdominal GI/Abdominal exam: Present: normal bowel sounds, soft, no peritoneal signs. Absent: distended, tenderness - Extremities Exam Extremities exam: Present: warm, radial pulses palpable and symmetrical. Absent : calf tenderness, cyanotic, pedal edema - Neurological Exam Neurological exam: Present: CN II-XII intact, oriented X3, no focal deficits. Absent: pronater drift, facial droop, speech deficit - Skin Skin exam: Present: dry, intact
== END 2017-09-16 10:05 | disposition home or self-care (01) ==
LOC: 3BNU 18:18 → EMEROO 18:18 → 3BNU 22:30
PROVIDERS: ADMIT Registered Nurse; ATTEND Registered Nurse

== ENCOUNTER 2018-05-29 16:03 | Observation (INO) ==
[2018-05-29] MEDS ORDERED: Aspirin 81 MG TAB.CHEW PO ONE (16:15)
[2018-05-29] MEDS ORDERED: Nitroglycerin 0.4 MG TAB.SUBL SL ONE (16:15)
[2018-05-29 16:39] LABS: Basophils # 0.1 K/mcL (0.0-0.2); Basophils % 0.8 %; Eosinophils # 0.2 K/mcL (0.0-0.6); Eosinophils % 3.2 %; Hematocrit 42.7 % (37.5-50.1); Hemoglobin 14.8 g/dL (12.9-16.9); Immature Granulocytes % 0.5 % (0-4); Lymphocytes # 1.3 K/mcL (0.6-4.6); Lymphocytes % 20.4 %; Mean Corpuscular HGB Conc 34.7 g/dL (31.6-35.5); Mean Corpuscular Hemoglobin 29.5 pg (28.0-33.3); Mean Corpuscular Volume 85.1 fL (83.0-100.0); Mean Platelet Volume 10.4 fL (9.4-12.4); Monocytes # 0.5 K/mcL (0.0-1.3); Neutrophils # 4.2 K/mcL (1.6-8.9); Platelet Count 159 K/mcL (140-400); Red Blood Count 5.02 M/mcL (4.19-5.50); Red Cell Distribution Width 16.2 % (11.5-14.5); Segmented Neutrophils % 67.1 %
[2018-05-29 16:44] LABS: INR 1.8; Prothrombin Time 20.3 Seconds (9.4-12.1)
[2018-05-29 17:00] LABS: BUN/Creatinine Ratio 8 (6-26); Blood Urea Nitrogen 11 mg/dL (6-20); Calcium 9.9 mg/dL (8.6-10.3); Carbon Dioxide 26 mEq/L (23-29); Chloride 101 mEq/L (98-107); Glucose 126 mg/dL (70-105); Osmolality,Calculated 287 (280-300); Potassium 3.3 mEq/L (3.5-5.1); Sodium 138 mEq/L (136-145); Troponin I < 0.03 ng/mL (< 0.04); eGFR For Non-African Americans 57 (> 60)
--- NOTE | 2018-05-29 17:09 | Emergency Department Note ---
Disposition Clinical Impression: Chest pain Qualifiers: Chest pain type: unspecified Qualified Code(s): R07.9 - Chest pain, unspecified Disposition: Admitted As Inpatient Condition: Good Referrals: Silver Choi DO [Primary Care Provider] - Forms: ED Satisfaction Letter Time of Disposition: 17:14 General Adult HPI - General Chief complaint: ED Chest Pain Stated complaint: CP Time Seen by Provider: 05/29/18 16:05 Source: patient, family Mode of arrival: ambulatory Limitations: no limitations Nursing Notes Reviewed: Yes Vital Signs Reviewed: Yes - History of Present Illness HPI Narrative: 58-year-old male with significant past medical history of cardiac disease including 8 stents and 4 vessel bypass surgery presenting to the emergency department with chief complaint of chest pain. Patient states today while he was sorting at home he started having a twinging-like feeling in his substernal chest area. It did not radiate. He was mildly diaphoretic but did not come nauseous or vomit. He did not try anything at home for this. He came directly to the emergency department for further evaluation. Patient does disclose a history of atrial fibrillation and is currently on Coumadin patient also states he has had an increasing coughing over the past week. Denies fevers but has felt warmer than normal at home. Pain Scale: 0 - Related Data Home Medications Medication Instructions Recorded Confirmed Aspirin 81 mg PO DAILY 06/20/15 11/07/17 Diltiazem CD (24hr) [Cardizem CD] 240 mg PO QAM 06/20/15 11/07/17 Ipratropium/Albuterol Neb [Duoneb] 3 ml IH Q6HR PRN 06/20/15 11/07/17 Metoprolol XL (24 HR) Succ [Toprol 25 mg PO QAM 06/20/15 11/07/17 XL] Tizanidine [Zanaflex] 4 mg PO Q8H PRN 06/20/15 11/07/17 Tiotropium [Spiriva] 1 puff IH DAILY 07/30/15 11/07/17 Tamsulosin HCl [Flomax] 0.4 mg PO DAILY 08/18/16 11/07/17 Atorvastatin Calcium [Lipitor] 80 mg PO HS 09/13/17 11/07/17 OxyCODONE/APAP 5/325 [Percocet 1 each PO Q6H PRN 09/13/17 11/07/17 5/325 MG] Fluticasone Propionate Nasal 1 mcg NS DAILY PRN 11/07/17 11/07/17 [Flonase] Furosemide [Lasix] 40 mg PO DAILY 11/07/17 11/07/17 Umeclidinium [place] [Incruse 1 puff IH DAILY 11/07/17 11/07/17 Ellipta] Warfarin [Coumadin] 2 mg PO WE 11/07/17 11/07/17 Warfarin [Coumadin] 4 mg PO SUMOTUTHFRSA 11/07/17 11/07/17 Previous Rx's Medication Instructions Recorded Albuterol Sulfate [Albuterol 2 puff IH Q4HR PRN #1 hfa.aer.ad 01/22/17 Inhaler] Omeprazole [PriLOSEC] 40 mg PO BIDAC #60 capsule. 09/16/17 Doxycycline 100 mg PO BID #10 capsule 03/16/18 predniSONE [PredniSONE] 60 mg PO DAILY #12 tablet 03/16/18 Allergies Allergy/AdvReac Type Severity Reaction Status Date / Time No Known Allergies Allergy Verified 05/29/18 16:09 All systems ED: reviewed and negative except as stated. Constitutional: Reports: fever (Subjective). Denies: chills, weakness Eyes: Reports: as per HPI ENT ED: Reports: as per HPI Cardiovascular: Reports: chest pain. Denies: palpitations, dyspnea on exertion Respiratory: Reports: cough. Denies: dyspnea, wheezes Gastrointestinal: Denies: abdominal pain, nausea, vomiting Genitourinary: Reports: as per HPI Musculoskeletal: Reports: as per HPI Integumentary: Reports: as per HPI Neurological: Denies: weakness, numbness, paresthesias Psychiatric: Reports: as per HPI Endocrine: Reports: as per HPI Hematological/Lymphatic: Reports: as per HPI Allergic/Immunologic: Reports: as per HPI Past Medical History - Past Medical History Attestation: Yes The following information was validated with the patient. Medical history: Reports: arthritis, atrial fibrillation, cancer, COPD, coronary artery disease, GERD, hepatitis, hyperlipidemia, hypertension, kidney stones, malignancy, myocardial infarction, renal disease Surgical history: Reports: angioplasty/stent, cancer surgery, coronary bypass ( CABG), herniorrhaphy, other Psychiatric history: Reports: no psych history - Social History Smoking Status: Former smoker Smokeless Tobacco Status: No Alcohol use: Reports: none Drug use: Reports: none Physical Exam - General Limitations: no limitations General appearance: alert, in no apparent distress - Head Head exam: atraumatic, normocephalic, normal inspection - Eye Eye exam: Present: normal appearance. Absent: scleral icterus, conjunctival injection - ENT ENT exam: normal exam, mucous membranes moist - Neck Neck exam: Present: normal inspection, full ROM. Absent: tenderness, meningismus - Chest Chest inspection: Present: normal inspection, symmetric chest wall rise, tenderness (Mild tenderness to deep palpation in the substernal region). Absent : rash - Respiratory Respiratory exam: Present: normal lung sounds bilaterally. Absent: respiratory distress, wheezes - Cardiovascular Cardiovascular exam: Present: regular rate, irregular rhythm - Abdominal Exam Abdominal exam: Present: soft, Non-Tender. Absent: distention, guarding, rebound - Extremities Exam Extremities exam: Present: normal inspection, full ROM - Neurological Exam Neurological exam: Present: alert, oriented X3 - Psychiatric Psychiatric exam: Present: normal affect, normal mood - Skin Skin exam: Present: warm, intact Course Course Narrative: 50-year-old male presenting to the emergency part chief complaint of chest pain. Patient has significant cardiac history including 8 stent and a four- vessel bypass. Patient states it feels like a twinging in his chest. He is alert and oriented 3 in the room with stable vital signs. EKG shows atrial fibrillation but no acute abnormalities. We will obtain basic laboratory analysis including CBC, BMP, troponin and chest x-ray. Disposition most likely admission due to patient's past medical history but pending results. Patient agrees with this plan. at bedside. - Reevaluation(s) Reevaluation #1: Patient's laboratory analysis has resulted in shows mild hypokalemia but otherwise within normal limits. Troponin within normal limits. Chest x-ray unchanged. Due to patient's past medical history and cardiac disease we will plan to admit the patient for further cardiac evaluation. Patient is alert and oriented 3 in the room with stable vital signs. I spoke with the hospitalist on-call Dr. Alfonso who agrees to accept the patient at this time. Vital Signs Temperature 98.1 F 05/29/18 16:08 Pulse Rate 55 05/29/18 16:08 Respiratory Rate 18 08/01/18 16:08 Blood Pressure 154/93 08/01/18 16:08 O2 Sat by Pulse Oximetry 98 05/29/18 16:08 Temperature 98.1 F 05/29/18 16:13 Pulse Rate 77 05/29/18 16:25 Respiratory Rate 18 05/29/18 16:13 Blood Pressure 143/88 05/29/18 16:25 O2 Sat by Pulse Oximetry 98 05/29/18 16:13 Oxygen Delivery Oxygen Delivery Room Air Medical Decision Making - Lab Data Result diagrams: 05/29/18 16:25 05/29/18 16:25 Lab Results 05/29/18 05/29/18 05/29/18 Range/Units 16:15 16:25 16:25 WBC 6.2 (4.3-11.1) K/mcL RBC 5.02 (4.19-5.50) M/mcL Hgb 14.8 (12.9-16.9) g/dL Hct 42.7 (37.5-50.1) % MCV 85.1 (83.0-100.0) fL MCH 29.5 (28.0-33.3) pg MCHC 34.7 (31.6-35.5) g/dL RDW 16.2 H (11.5-14.5) % Plt Count 159 (140-400) K/mcL MPV 10.4 (9.4-12.4) fL Immature Gran % 0.5 (0-4) % Seg Neutrophils % 67.1 % Lymphocytes % 20.4 % Monocytes % 8.0 % Eosinophils % 3.2 % Basophils % 0.8 % Neutrophils # 4.2 (1.6-8.9) K/mcL Lymphocytes # 1.3 (0.6-4.6) K/mcL Monocytes # 0.5 (0.0-1.3) K/mcL Eosinophils # 0.2 (0.0-0.6) K/mcL Basophils # 0.1 (0.0-0.2) K/mcL PT 20.3 H (9.4-12.1) Seconds INR 1.8 D-Dimer 325 (0-500) ng/mLFEU Sodium 138 (136-145) mEq/L Potassium 3.3 L (3.5-5.1) mEq/L Chloride 101 (98-107) mEq/L Carbon Dioxide 26 (23-29) mEq/L BUN 11 (6-20) mg/dL Creatinine 1.30 (0.70-1.30) mg/dL Est GFR ( Amer) > 60 (> 60) Est GFR (Non-Af Amer) 57 L (> 60) BUN/Creatinine Ratio 8 (6-26) Glucose 126 H (70-105) mg/dL Calculated Osmolality 287 (280-300) Calcium 9.9 (8.6-10.3) mg/dL Troponin I < 0.03 (< 0.04) ng/mL - EKG Data EKG #1 EKG attestation: Yes I reviewed and interpreted this EKG. EKG results narrative: Atrial fibrillation. [address] segment elevation or ischemia. QRS 101, QTc 444.
--- NOTE | 2018-05-29 17:16 | Emergency Department Note ---
Disposition Clinical Impression: Chest pain Qualifiers: Chest pain type: unspecified Qualified Code(s): R07.9 - Chest pain, unspecified Disposition: Admitted As Inpatient Condition: Good Referrals: Silver Choi DO [Primary Care Provider] - Forms: ED Satisfaction Letter Time of Disposition: 17:16 General Adult HPI - General Chief complaint: ED Chest Pain Stated complaint: CP Time Seen by Provider: 05/29/18 16:05 Source: patient, family Mode of arrival: ambulatory Limitations: no limitations - History of Present Illness Pain Scale: 0 - Related Data Home Medications Medication Instructions Recorded Confirmed Aspirin 81 mg PO DAILY 06/20/15 11/07/17 Diltiazem CD (24hr) [Cardizem CD] 240 mg PO QAM 06/20/15 11/07/17 Ipratropium/Albuterol Neb [Duoneb] 3 ml IH Q6HR PRN 06/20/15 11/07/17 Metoprolol XL (24 HR) Succ [Toprol 25 mg PO QAM 06/20/15 11/07/17 XL] Tizanidine [Zanaflex] 4 mg PO Q8H PRN 06/20/15 11/07/17 Tiotropium [Spiriva] 1 puff IH DAILY 07/30/15 11/07/17 Tamsulosin HCl [Flomax] 0.4 mg PO DAILY 08/18/16 11/07/17 Atorvastatin Calcium [Lipitor] 80 mg PO HS 09/13/17 11/07/17 OxyCODONE/APAP 5/325 [Percocet 1 each PO Q6H PRN 09/13/17 11/07/17 5/325 MG] Fluticasone Propionate Nasal 1 mcg NS DAILY PRN 11/07/17 11/07/17 [Flonase] Furosemide [Lasix] 40 mg PO DAILY 11/07/17 11/07/17 Umeclidinium [place] [Incruse 1 puff IH DAILY 11/07/17 11/07/17 Ellipta] Warfarin [Coumadin] 2 mg PO WE 11/07/17 11/07/17 Warfarin [Coumadin] 4 mg PO SUMOTUTHFRSA 11/07/17 11/07/17 Previous Rx's Medication Instructions Recorded Albuterol Sulfate [Albuterol 2 puff IH Q4HR PRN #1 hfa.aer.ad 03/27/17 Inhaler] Omeprazole [PriLOSEC] 40 mg PO BIDAC #60 capsule. 09/16/17 Doxycycline 100 mg PO BID #10 capsule 03/16/18 predniSONE [PredniSONE] 60 mg PO DAILY #12 tablet 03/16/18 Allergies Allergy/AdvReac Type Severity Reaction Status Date / Time No Known Allergies Allergy Verified 05/29/18 16:09 Constitutional: Reports: fever (Subjective). Denies: chills, weakness Eyes: Reports: as per HPI ENT ED: Reports: as per HPI Cardiovascular: Reports: chest pain. Denies: palpitations, dyspnea on exertion Respiratory: Reports: cough. Denies: dyspnea, wheezes Gastrointestinal: Denies: abdominal pain, nausea, vomiting Genitourinary: Reports: as per HPI Musculoskeletal: Reports: as per HPI Integumentary: Reports: as per HPI Neurological: Denies: weakness, numbness, paresthesias Psychiatric: Reports: as per HPI Endocrine: Reports: as per HPI Hematological/Lymphatic: Reports: as per HPI Allergic/Immunologic: Reports: as per HPI Past Medical History - Past Medical History Medical history: Reports: arthritis, atrial fibrillation, cancer, COPD, coronary artery disease, GERD, hepatitis, hyperlipidemia, hypertension, kidney stones, malignancy, myocardial infarction, renal disease Surgical history: Reports: angioplasty/stent, cancer surgery, coronary bypass ( CABG), herniorrhaphy, other Psychiatric history: Reports: no psych history - Social History Smoking Status: Former smoker Smokeless Tobacco Status: No Alcohol use: Reports: none Drug use: Reports: none Physical Exam - General Limitations: no limitations General appearance: alert, in no apparent distress Course Vital Signs Temperature 98.1 F 05/29/18 16:08 Pulse Rate 55 05/29/18 16:08 Respiratory Rate 18 05/29/18 16:08 Blood Pressure 154/93 05/29/18 16:08 O2 Sat by Pulse Oximetry 98 05/29/18 16:08 Temperature 98.1 F 05/29/18 16:13 Pulse Rate 77 05/29/18 16:25 Respiratory Rate 18 05/29/18 16:13 Blood Pressure 143/88 05/29/18 16:25 O2 Sat by Pulse Oximetry 98 05/29/18 16:13 Oxygen Delivery Oxygen Delivery Room Air Medical Decision Making - Lab Data Result diagrams: 05/29/18 16:25 05/29/18 16:25 Lab Results 05/29/18 05/29/18 05/29/18 Range/Units 16:15 16:25 16:25 WBC 6.2 (4.3-11.1) K/mcL RBC 5.02 (4.19-5.50) M/mcL Hgb 14.8 (12.9-16.9) g/dL Hct 42.7 (37.5-50.1) % MCV 85.1 (83.0-100.0) fL MCH 29.5 (28.0-33.3) pg MCHC 34.7 (31.6-35.5) g/dL RDW 16.2 H (11.5-14.5) % Plt Count 159 (140-400) K/mcL MPV 10.4 (9.4-12.4) fL Immature Gran % 0.5 (0-4) % Seg Neutrophils % 67.1 % Lymphocytes % 20.4 % Monocytes % 8.0 % Eosinophils % 3.2 % Basophils % 0.8 % Neutrophils # 4.2 (1.6-8.9) K/mcL Lymphocytes # 1.3 (0.6-4.6) K/mcL Monocytes # 0.5 (0.0-1.3) K/mcL Eosinophils # 0.2 (0.0-0.6) K/mcL Basophils # 0.1 (0.0-0.2) K/mcL PT 20.3 H (9.4-12.1) Seconds INR 1.8 D-Dimer 325 (0-500) ng/mLFEU Sodium 138 (136-145) mEq/L Potassium 3.3 L (3.5-5.1) mEq/L Chloride 101 (98-107) mEq/L Carbon Dioxide 26 (23-29) mEq/L BUN 11 (6-20) mg/dL Creatinine 1.30 (0.70-1.30) mg/dL Est GFR ( Amer) > 60 (> 60) Est GFR (Non-Af Amer) 57 L (> 60) BUN/Creatinine Ratio 8 (6-26) Glucose 126 H (70-105) mg/dL Calculated Osmolality 287 (280-300) Calcium 9.9 (8.6-10.3) mg/dL Troponin I < 0.03 (< 0.04) ng/mL Attestation Statement - Attestation Attestation: Separately interviewed and examined the patient, discussed evaluation and treatment with resident, and agree with disposition.
--- NOTE | 2018-05-29 20:23 | Internal Med History&Physical ---
<Jamal Donnelly - Last Filed: 05/29/18 22:11> Date of Encounter: 05/29/18 Time of Encounter: 20:18 Internal Medicine - H&P: HPI Chief complaint: chest pain Admitted From: Emergency Dept Plans for Post Hospital Care: Home History of present illness: Mr. Lynch is a 58 year old male with past medical history of atrial fibrillation on Coumadin, COPD, GERD, hepatitis, hyperlipidemia, hypertension, CKD, CAD status post CABG 4 in 2011 who presents the emergency department with complaint of chest pain starting this afternoon. Patient states that he was snorting in his garage and not exerting himself when he began to experience sudden onset left substernal sharp chest pain without radiation. He states the episode lasted a couple seconds and then resolved on its own. He has never experienced anything like this in the past. He states that at the time of his CABG he did have a heart attack and at that time his symptoms mainly included chest pressure and shortness of breath. He denies any exacerbating or relieving symptoms as it was short enough that he did not try anything. He denies any associated symptoms of fevers, chills, shortness of breath, nausea, vomiting, diaphoresis and states chest pain has since resolved. He denies any associations with eating. Denies any cough, travel and states he had a mild cold couple weeks ago. In the emergency department, vital signs are essentially normal with only mild hypertension of 154/93. Laboratory results were significant for hypokalemia at 3.3, CKD at baseline and a negative troponin. INR was mildly subtherapeutic at 1.8. Chest x-ray shows chronic changes in the left base otherwise unremarkable for acute pathology. he was given aspirin and admitted to hospital for further management of chest pain rule out. past medical history as above Past surgical history including CABG 4 in 2011 Former smoker, quit approximately 20 years ago. Previous one and one half pack per day 20 years. Denies alcohol or drug use. Family history significant for father and brother both having heart attacks in their 40s. Previous cardiac workup: Echocardiogram 09/14/17 showing ejection fraction 5560% with severe dilation of the left atrium as well as indeterminate diastolic dysfunction. Stress test in February 2015 was reportedly nondiagnostic showing baseline ST changes and basal inferior hypokinesis. Left heart catheter reportedly in July 2009 for which the report is unavailable but patient reports it was normal. Past Med Surg Social Fam HX - Past Medical History Medical history: arthritis, atrial fibrillation, cancer, COPD, coronary artery disease, GERD, hepatitis, hyperlipidemia, hypertension, kidney stones, malignancy, myocardial infarction, renal disease Additional medical history: lymphoma Psychiatric history: no psych history - Past Surgical History Surgical History: angioplasty/stent, cancer surgery, coronary bypass (CABG), herniorrhaphy, other Additional surgical history: bone spur -. hernia repair. 8 stents - Social History Smoking Status: Former smoker Smokeless Tobacco Status: No Alcohol use: none Drug use: none - Family History Mother Hx Family Endocrine Disorder: Yes (Diabetes) Father Adopted: No Living Status: Hx Family Cardiac Disorders: Yes (mi) Hx Family Respiratory Disorders: No Hx Family Cancer: Yes (Lung) Hx Family GI Disorders: No Hx Family Endocrine Disorder: No Hx Family Neuromuscular Disorders: No Hx Family Neurologic Disorders: No Hx Family HEENT Disorders: No Hx Family Autoimmune Disorders: No Internal Medicine - H&P: Meds Aspirin 81 mg PO DAILY 06/20/15 [History] Tamsulosin HCl [Flomax] 0.4 mg PO DAILY 08/18/16 [History] Albuterol Sulfate [Albuterol Inhaler] 2 puff IH Q4HR PRN #1 hfa.aer.ad 01/22/17 [Rx] Atorvastatin Calcium [Lipitor] 80 mg PO HS 09/13/17 [History] Omeprazole [PriLOSEC] 40 mg PO BIDAC #60 capsule.dr 09/16/17 [Rx] Fluticasone Propionate Nasal [Flonase] 1 mcg NS DAILY PRN 11/07/17 [History] Furosemide [Lasix] 40 mg PO DAILY 11/07/17 [History] Warfarin [Coumadin] 2 mg PO MOWEFRSA 11/07/17 [History] Warfarin [Coumadin] 4 mg PO SUTUTH 11/07/17 [History] Diltiazem CD (24hr) [Cardizem CD] 240 mg PO DAILY 05/29/18 [History] Ipratropium/Albuterol Neb [Duoneb] 3 ml IH Q6HR PRN 05/29/18 [History] Metoprolol Succinate [Toprol Xl] 25 mg PO QAM 05/29/18 [History] Sucralfate [Carafate] 1 gm PO BID 05/29/18 [History] Tizanidine HCl 4 mg PO Q8H PRN 05/29/18 [History] Valsartan [Valsartan] 40 mg PO DAILY 05/29/18 [History] 3 Allergy/AdvReac Type Severity Reaction Status Date / Time No Known Allergies Allergy Verified 05/29/18 16:09 All Systems PM: A 10-system review of systems was performed and is negative for pertinent findings except as documented above in the HPI. - Constitutional Constitutional: no chills, no fatigue, no fever(s), no weakness - Cardiovascular Cardiovascular ROS IM: chest pain, irregular heart rhythm, no diaphoresis, no dyspnea, no dyspnea on exertion, no edema, no palpitations, no syncope - Respiratory Respiratory: no cough, no dyspnea, no dyspnea on exertion, no chest congestion - Gastrointestinal Gastrointestinal: no dyspepsia, no nausea, no vomiting - Integumentary Integumentary IM: no rash - Neurological Neurological ROS: no numbness, no tingling, no weakness - Constitutional Vitals: Temp Pulse Resp BP Pulse Ox 98.1 F 78 16 132/85 96 05/29/18 16:13 05/29/18 17:48 05/29/18 19:13 05/29/18 19:13 05/29/18 17:53 Exam: Gen.: Vitals noted. No acute distress. AAOx3 HEENT: PERRL/EOMI, oropharynx clear, Normocephalic, atraumatic, MMM Cardiac: Irregularly irregular, no murmur, +S1/S2. Rate control. Nonreproducible chest pain Pulmonary: CTA bilaterally, no wheezes, rales or rhonchi, equal chest expansion Abdomen: soft, nontender, BS noted, no guarding, no rebound. MSK: ROM intact, no joint swelling noted Extremities: no BLE edema, nontender calf, no cyanosis or clubbing Neuro: A&Ox3, moves all extremities, no focal deficits Psych: Appropriate mood and behavior Internal Med - H&P Results - Labs CBC & Chem 7: 05/29/18 16:25 05/29/18 16:25 - Assessment and plan (1) Chest pain Current Visit: Yes Status: Suspected Assessment and plan: - Chest pain is atypical in nature. - Suspect etiology of musculoskeletal in nature. - Patient is high risk however given risk factors (HTN, HLD, CAD with previous CABG, FHx) - Troponin negative on presentation - EKG shows AFib rate controlled with no ST changes - Pain has resolved. Plan - Supportive care - Trend troponins x3 - Echocardiogram in the AM - Will not initiate heparin or consult cardiology as this has low suspicion for ACS - Replaced K Qualifiers: Chest pain type: other chest pain Qualified Code(s): R07.89 - Other chest pain; R07.8 - Other chest pain (2) A-fib Current Visit: Yes Status: Chronic Assessment and plan: Chronic Afib on coumadin Currently rate controlled Continue home management Qualifiers: Atrial fibrillation type: chronic Qualified Code(s): I48.2 - Chronic atrial fibrillation (3) HTN (hypertension) Current Visit: Yes Status: Chronic Assessment and plan: Mildly elevated at 154/93 continue home antihypertensives Qualifiers: Hypertension type: essential hypertension Qualified Code(s): I10 - Essential (primary) hypertension (4) HLD (hyperlipidemia) Current Visit: Yes Status: Chronic Assessment and plan: continue statin repeat lipid panel Qualifiers: Hyperlipidemia type: unspecified Qualified Code(s): E78.5 - Hyperlipidemia , unspecified (5) CAD (coronary artery disease) Current Visit: Yes Status: Chronic Assessment and plan: - As above for chest pain, - Previous studies as in HPI - Repeat ECho - Continue home Asa, statin, BB - No current chest pain, unlikely ACS Qualifiers: Coronary Disease-Associated Artery/Lesion type: [place] artery [place] vs. transplanted heart: [place] heart Associated angina: without angina Qualified Code(s): I25.10 - Atherosclerotic heart disease of [place] coronary artery without angina pectoris (6) DVT prophylaxis Current Visit: Yes Status: Acute Assessment and plan: - On coumadin for AFib, continue (7) Hypokalemia Current Visit: Yes Status: Acute Assessment and plan: K of 3.3 on admission Replaced with 40 mEq Possibly contributing to MSK pain Morning labs - Time Spent With Patient Total time spent is greater than 50% in coordination of care (as documented) at patient's floor/unit and/or counseling patient: <Dimple Reyes - Last Filed: 05/30/18 02:56> Date of Encounter: 05/30/18 Internal Medicine - H&P: HPI History of present illness: Mr. Lynch is a 58 year old male All Systems PM: A 10-system review of systems was performed and is negative for pertinent findings except as documented above in the HPI. - Constitutional Vitals: Temp Pulse Resp BP Pulse Ox 98.1 F 63 15 92/58 98 05/30/18 01:09 05/30/18 01:09 05/30/18 01:09 05/30/18 01:09 05/30/18 01:09 Internal Med - H&P Results - Labs CBC & Chem 7: 05/29/18 16:25 05/29/18 16:25 Labs: Cardiac Enzymes 05/29/18 Range/Units 22:12 Troponin I < 0.03 (< 0.04) ng/mL - Attending Attestation Seen and assessed. Agree with plan per resident. COntinue management for chest pain - Assessment and plan (1) A-fib Current Visit: Yes Status: Chronic Qualifiers: Atrial fibrillation type: chronic Qualified Code(s): I48.2 - Chronic atrial fibrillation (2) HTN (hypertension) Current Visit: Yes Status: Chronic Qualifiers: Hypertension type: essential hypertension Qualified Code(s): I10 - Essential (primary) hypertension (3) HLD (hyperlipidemia) Current Visit: Yes Status: Chronic Qualifiers: Hyperlipidemia type: unspecified Qualified Code(s): E78.5 - Hyperlipidemia , unspecified (4) CAD (coronary artery disease) Current Visit: Yes Status: Chronic Qualifiers: Coronary Disease-Associated Artery/Lesion type: [place] artery [place] vs. transplanted heart: [place] heart Associated angina: without angina Qualified Code(s): I25.10 - Atherosclerotic heart disease of [place] coronary artery without angina pectoris (5) Chest pain Current Visit: Yes Status: Suspected Qualifiers: Chest pain type: other chest pain Qualified Code(s): R07.89 - Other chest pain; R07.8 - Other chest pain (6) DVT prophylaxis Current Visit: Yes Status: Acute (7) Hypokalemia Current Visit: Yes Status: Acute - Time Spent With Patient Total time spent is greater than 50% in coordination of care (as documented) at patient's floor/unit and/or counseling patient:
[2018-05-29] MEDS ORDERED: Naloxone 0.4 MG/ML INJ IVP PRN (20:30)
[2018-05-29] MEDS ORDERED: *HR* HYDROcodone/Acet 5/325 mg TABLET PO PRN (20:30)
[2018-05-29] MEDS ORDERED: Ibuprofen 400 MG TABLET PO PRN (20:30)
[2018-05-29] MEDS ORDERED: tiZANidine 4 MG TABLET PO PRN (20:32)
[2018-05-29] MEDS ORDERED: *HR* Warfarin 2 MG TABLET PO SCH (20:45)
[2018-05-29] MEDS ORDERED: Sucralfate 1 GM TABLET PO SCH (21:00)
[2018-05-29] MEDS ORDERED: Ipratropium/Albuterol Neb 3 ML IH PRN (22:00)
[2018-05-29] MEDS: Valsartan 80 MG TABLET PO SCH (22:21)
[2018-05-29] MEDS: Furosemide 40 MG TABLET PO SCH (22:23)
[2018-05-30 05:03] LABS: Basophils % 0.7 %; Eosinophils # 0.2 K/mcL (0.0-0.6); Eosinophils % 3.5 %; Hemoglobin 13.5 g/dL (12.9-16.9); Immature Granulocytes % 0.4 % (0-4); Lymphocytes # 1.5 K/mcL (0.6-4.6); Lymphocytes % 27.4 %; Mean Corpuscular HGB Conc 34.6 g/dL (31.6-35.5); Mean Corpuscular Hemoglobin 29.5 pg (28.0-33.3); Mean Corpuscular Volume 85.3 fL (83.0-100.0); Mean Platelet Volume 10.6 fL (9.4-12.4); Monocytes # 0.5 K/mcL (0.0-1.3); Monocytes % 8.9 %; Neutrophils # 3.2 K/mcL (1.6-8.9); Platelet Count 152 K/mcL (140-400); Red Blood Count 4.57 M/mcL (4.19-5.50); Red Cell Distribution Width 16.3 % (11.5-14.5); Segmented Neutrophils % 59.1 %
[2018-05-30 05:26] LABS: BUN/Creatinine Ratio 8 (6-26); Blood Urea Nitrogen 10 mg/dL (6-20); Calcium 9.3 mg/dL (8.6-10.3); Carbon Dioxide 29 mEq/L (23-29); Chloride 105 mEq/L (98-107); Chol/HDL Ratio 4.4 (0-4.9); Cholesterol 127 mg/dL (< 200); Glucose 132 mg/dL (70-105); HDL Cholesterol 29 mg/dL (40-59); LDL Cholesterol,Calculated 62 mg/dL (0-99); Osmolality,Calculated 291 (280-300); Potassium 3.6 mEq/L (3.5-5.1); Sodium 140 mEq/L (136-145); Triglycerides 178 mg/dL (< 150); eGFR For Non-African Americans 60 (> 60)
[2018-05-30] MEDS ORDERED: Albuterol 2.5 MG/3 ML NEBULIZER IH PRN (08:02)
[2018-05-30] MEDS: Valsartan 80 MG TABLET PO SCH (08:30)
[2018-05-30] MEDS: Furosemide 40 MG TABLET PO SCH (08:31)
[2018-05-30] MEDS: Sucralfate 1 GM TABLET PO SCH ×2 (08:41→16:01)
[2018-05-30 08:54] LABS: INR 1.9; Prothrombin Time 20.9 Seconds (9.4-12.1)
[2018-05-30] MEDS ORDERED: Metoprolol XL (24 HR) Succ 25 MG TAB.ER.24H PO SCH (09:00)
[2018-05-30] MEDS ORDERED: Diltiazem CD (24hr) 240 MG CAPSULE PO SCH (09:00)
[2018-05-30] MEDS ORDERED: Aspirin 81 MG TAB.CHEW PO SCH (09:00)
[2018-05-30] MEDS ORDERED: Acetaminophen 325 MG TABLET PO PRN (11:04)
--- NOTE | 2018-05-30 11:04 | Cardiology Consult Note ---
<Joe Fair R - Last Filed: 05/30/18 11:06> Date of Encounter: 05/30/18 Time of Encounter: 11:03 Assessment and Plan (1) Chest pain Status: Suspected Presented with left sided chest pain, lasted seconds. Estimates having 7 episodes in total, did not last long enough to utilize nitro, not associated with exertion and different than his prior anginal equivalent. Reports area was tender to touch yesterday, not today. No recurrent episodes since admission. Troponin negative x 3. Hx CABG in 2008. Nuclear stress test in 2014 negative for ischemia. EKG no ischemic changes. Recent TTE 08/2017 EF preserved. I discussed with pt proceeding with a stress test to rule out ischemic cause given his hx and no recent ischemic evaluation. He has already eaten today and prefers to be discharged home and have a stress test as an outpt. Discussed and reviewed with Dr. Gómez Javed, who is okay with plan for outpt stress test since he has ruled out for ACS. Continue ASA, Statin, BB, ARB. Will plan to add Imdur 30mg daily. Anticipate sign off once seen and evaluated by Dr. Gómez Javed. Will plan to coordinate outpt stress test with follow-up with Dr. Garibay. Qualifiers: Chest pain type: other chest pain Qualified Code(s): R07.89 - Other chest pain; R07.8 - Other chest pain (2) A-fib Status: Chronic Known A-Fib. Rate controlled on BB and CCB. Anticoagulated on Coumadin, INR 1.9. Goal 2.0-3.0. Qualifiers: Atrial fibrillation type: chronic Qualified Code(s): I48.2 - Chronic atrial fibrillation (3) CAD (coronary artery disease) Status: Chronic Hx of CABG in 2008. Continue ASA, Statin, BB, ARB. Start Imdur 30mg daily. Qualifiers: Coronary Disease-Associated Artery/Lesion type: [place] artery [place] vs. transplanted heart: [place] heart Associated angina: without angina Qualified Code(s): I25.10 - Atherosclerotic heart disease of [place] coronary artery without angina pectoris Discussion w patient/family: The assessment and plan as outlined above was discussed with the patient and/or family members who expressed understanding and agreement. All questions were answered. Thank you for involving us in the care of your patient. Please call with any questions. I will discuss and review with Dr. Gómez Javed and make changes as necessary. History of Present Illness Consult date: 05/30/18 Requesting physician: Dimple Reyes Consult reason: Chest pain Chief complaint: chest pain History of present illness: Mr. Lynch is a 58 year old male with PMH of CAD s/p CABG in 2008, AF (coumadin) , hepatitis C, CKD, and dyslipidemia. Patient states that he was standing in his garage yesterday, not exerting himself when he began to experience sudden onset left substernal sharp chest pain without radiation. He states the episode lasted a couple seconds and then resolved on its own. He had approximately 7 episodes in total, prompting ED evaluation. No recurrent episodes since admission. He also states the area on his chest was tender to touch yesterday, but not today. This pain was different than his prior anginal equivalent. Troponins negative x 3. Cardiology consulted for further recs. Previous CV studies: TTE 09/14/2017: LVEF 55-60%. Severe left atrial enlargement. No significant valvular dysfunction. Normal RV size and function. Indeterminate diastolic function. C 04/2009: LAD proximal to mid 85% stenosis. Septal blood donor recruiter supervisor 80% stenosis. OM1 75% stenosis. OM to 75% stenosis. RCA proximal and mid patent stents, 50-60 % ISR in the distal stent. CABG recommended. Pharmacological nuclear stress test 03/13/2015: Fixed inferior defect consistent with prior infarct. Negative for ischemia. Gated EF 48%. Past Med Surg Social Fam HX - Past Medical History Medical history: arthritis, atrial fibrillation, cancer, COPD, coronary artery disease, GERD, hepatitis, hyperlipidemia, hypertension, kidney stones, malignancy, myocardial infarction, renal disease Additional medical history: lymphoma Psychiatric history: no psych history - Past Surgical History Surgical History: angioplasty/stent, cancer surgery, coronary bypass (CABG), herniorrhaphy, other Additional surgical history: bone spur -. hernia repair. 8 stents - Social History Smoking Status: Former smoker Smokeless Tobacco Status: No Alcohol use: none Drug use: none - Family History Mother Hx Family Endocrine Disorder: Yes (Diabetes) Father Adopted: No Living Status: Hx Family Cardiac Disorders: Yes (mi) Hx Family Respiratory Disorders: No Hx Family Cancer: Yes (Lung) Hx Family GI Disorders: No Hx Family Endocrine Disorder: No Hx Family Neuromuscular Disorders: No Hx Family Neurologic Disorders: No Hx Family HEENT Disorders: No Hx Family Autoimmune Disorders: No Medications and Allergies Aspirin 81 mg PO DAILY 06/20/15 [History] Tamsulosin HCl [Flomax] 0.4 mg PO DAILY 08/18/16 [History] Albuterol Sulfate [Albuterol Inhaler] 2 puff IH Q4HR PRN #1 hfa.aer.ad 01/22/17 [Rx] Atorvastatin Calcium [Lipitor] 80 mg PO HS 09/13/17 [History] Omeprazole [PriLOSEC] 40 mg PO BIDAC #60 capsule.dr 09/16/17 [Rx] Fluticasone Propionate Nasal [Flonase] 1 mcg NS DAILY PRN 11/07/17 [History] Furosemide [Lasix] 40 mg PO DAILY 11/07/17 [History] Warfarin [Coumadin] 2 mg PO MOWEFRSA 11/07/17 [History] Warfarin [Coumadin] 4 mg PO SUTUTH 11/07/17 [History] Diltiazem CD (24hr) [Cardizem CD] 240 mg PO DAILY 05/29/18 [History] Ipratropium/Albuterol Neb [Duoneb] 3 ml IH Q6HR PRN 05/29/18 [History] Metoprolol Succinate [Toprol Xl] 25 mg PO QAM 05/29/18 [History] Sucralfate [Carafate] 1 gm PO BID 05/29/18 [History] Tizanidine HCl 4 mg PO Q8H PRN 05/29/18 [History] Valsartan 40 mg PO DAILY 05/29/18 [History] Isosorbide MONOnitrate (24 HR) [Imdur] 30 mg PO DAILY #30 tab.er.24h 05/30/18 [ Rx] 3 Allergy/AdvReac Type Severity Reaction Status Date / Time No Known Allergies Allergy Verified 05/29/18 16:09 All Systems Review: The remainder of the systems were reviewed and are negative - Cardiovascular Cardiovascular: as per HPI, chest pain at rest, chest pain with exertion Physical Examination Vital Signs, Last 4 Hours Temp Pulse Resp BP Pulse Ox 05/30/18 08:00 96 05/30/18 07:23 98.4 F 73 12 101/65 96 Vital Signs Temp Pulse Resp BP Pulse Ox 05/30/18 08:00 96 05/30/18 07:23 98.4 F 73 12 101/65 96 05/30/18 04:14 98 F 65 15 100/58 98 05/30/18 01:09 98.1 F 63 15 92/58 98 05/29/18 20:30 97.6 F 71 15 129/81 96 05/29/18 19:13 16 132/85 05/29/18 17:53 96 05/29/18 17:48 78 16 132/85 95 05/29/18 16:25 77 143/88 05/29/18 16:24 76 157/110 05/29/18 16:13 98.1 F 55 18 154/93 98 05/29/18 16:08 98.1 F 55 18 154/93 98 Intake and Output 05/29/18 05/30/18 05/30/18 23:59 07:59 15:59 Intake Total 600 / 600 Balance 600 / 600 Intake: Oral 600 / 600 Other: Meal Breakfast Percent of Meal Consumed 95% Weight 99.065 kg General: Conversant, No Apparent Distress HEENT: Atraumatic, Normocephaly, Mucus Membranes Moist Neck: No JVD, Normal carotid pulses Cardiac: Other (irregularly irregular) Lungs: Normal Breath Sounds, No Wheeze, Rales, Rhonchi Neuro: Alert and responsive, No focal deficits noted Abdomen: Soft, Non-Tender Skin: No rashes noted on visualized skin Musculoskeletal: No Chest Wall Tenderness Extremities: No Clubbing, No Cyanosis, No Edema, Normal Pulses Results 05/30/18 04:29 05/30/18 04:29 Lab Results 05/29/18 05/30/18 05/30/18 22:12 04:29 04:29 WBC 5.4 Hgb 13.5 Hct 39.0 Plt Count 152 INR Sodium 140 Potassium 3.6 Chloride 105 Carbon Dioxide 29 BUN 10 Creatinine 1.24 Glucose 132 H Calcium 9.3 Troponin I < 0.03 05/30/18 05/30/18 04:29 08:26 WBC Hgb Hct Plt Count INR 1.9 Sodium Potassium Chloride Carbon Dioxide BUN Creatinine Glucose Calcium Troponin I < 0.03 Short CBC 05/30/18 05/29/18 Range/Units 04:29 16:25 WBC 5.4 6.2 (4.3-11.1) K/mcL Hgb 13.5 14.8 (12.9-16.9) g/dL Hct 39.0 42.7 (37.5-50.1) % Plt Count 152 159 (140-400) K/mcL Neutrophils # 3.2 4.2 (1.6-8.9) K/mcL BMP 05/30/18 05/29/18 Range/Units 04:29 16:25 Sodium 140 138 (136-145) mEq/L Potassium 3.6 3.3 L (3.5-5.1) mEq/L Chloride 105 101 (98-107) mEq/L Carbon Dioxide 29 26 (23-29) mEq/L BUN 10 11 (6-20) mg/dL Creatinine 1.24 1.30 (0.70-1.30) mg/dL Glucose 132 H 126 H (70-105) mg/dL Calcium 9.3 9.9 (8.6-10.3) mg/dL Cardiac Enzymes 05/30/18 05/29/18 05/29/18 Range/Units 04:29 22:12 16:25 Troponin I < 0.03 < 0.03 < 0.03 (< 0.04) ng/mL Impressions Chest X-Ray 05/29/18 16:15 IMPRESSION: 1. No significant change. D/ / Julio C Garrett MD / Julio C Garrett MD Interpreting Provider: Julio C Garrett MD Active Medications Acetaminophen (Tylenol) 650 mg PO Q6HR PRN PRN Reason: Mild Pain/Fever Stop: 11/29/18 11:05 Hydrocodone Bitart/Acetaminophen ([place] 5-325 Mg) 1 tab PO Q6HR PRN PRN Reason: Moderate Pain Stop: 11/28/18 20:31 Albuterol Sulfate (Proventil Neb) 2.5 mg IH Q2H PRN; Protocol PRN Reason: Shortness Of Breath/Wheezing Stop: 11/29/18 08:03 Aspirin (Aspirin) 81 mg PO DAILY JOSELUIS Stop: 11/29/18 09:01 Last Admin: 05/30/18 08:31 Dose: 81 mg Atorvastatin Calcium (Lipitor) 80 mg PO HS JOSELUIS Stop: 11/28/18 21:01 Last Admin: 05/29/18 21:44 Dose: 80 mg Diltiazem HCl (Cardizem Cd) 240 mg PO DAILY [facility] Stop: 11/29/18 09:01 Last Admin: 05/30/18 08:30 Dose: 240 mg Furosemide (Lasix) 40 mg PO DAILY [facility] Stop: 11/28/18 22:01 Last Admin: 05/30/18 08:31 Dose: 40 mg Metoprolol Succinate (Toprol Xl) 25 mg PO QAM [facility] Stop: 11/29/18 09:01 Last Admin: 05/30/18 08:30 Dose: 25 mg Naloxone HCl (Narcan) 0.4 mg IVP Q2MIN PRN PRN Reason: SEE COMMENTS Stop: 11/28/18 20:31 Omeprazole (Prilosec) 40 mg PO BIDAC [facility] PRN Reason: Protocol Stop: 11/29/18 07:31 Last Admin: 05/30/18 08:31 Dose: 40 mg Sucralfate (Carafate) 1 gm PO 0730,1630 [facility] Stop: 11/29/18 08:03 Last Admin: 05/30/18 08:41 Dose: 1 gm Tamsulosin HCl (Flomax) 0.4 mg PO DAILY [facility] PRN Reason: Protocol Stop: 11/29/18 09:01 Last Admin: 05/30/18 08:30 Dose: 0.4 mg Tizanidine HCl (Zanaflex) 4 mg PO Q8H PRN PRN Reason: MUSCLE SPASMS Stop: 11/28/18 20:33 Valsartan (Diovan) 40 mg PO DAILY [facility] Stop: 11/28/18 22:01 Last Admin: 05/30/18 08:30 Dose: 40 mg Warfarin Sodium (Coumadin Perpt) 1 each PO DAILY@1800 PRN PRN Reason: SEE COMMENTS Stop: 11/29/18 18:01 Warfarin Sodium (Coumadin) 4 mg PO 1800 ONE Stop: 05/30/18 18:01 - Imaging and Cardiology Echo: report reviewed - EKG Interpretation EKG results cardiology: personally reviewed (A-Fib), other (12 hr tele AVG HR 66 , A-Fib. No significant pauses.) Consult Discharge Plan - Plan Instructions: Hypokalemia (DC) Referrals: Silver Choi DO [Primary Care Provider] - Prescriptions: Isosorbide MONOnitrate (24 HR) [Imdur] 30 mg PO DAILY #30 tab.er.24h <Gómez Javed - Last Filed: 05/31/18 15:41> Date of Encounter: 05/31/18 - Attending Attestation I have personally performed a face to face evaluation on this patient. I have reviewed and agree with the care plan. History and Exam by me shows: Atypical chest pain, JUNIOR negative. Recommend stress test, he would prefer to do as outpt. Assessment and Plan Discussion w patient/family: The assessment and plan as outlined above was discussed with the patient and/or family members who expressed understanding and agreement. All questions were answered. Thank you for involving us in the care of your patient. Please call with any questions. History of Present Illness History of present illness: Mr. Lynch is a 58 year old male All Systems Review: The remainder of the systems were reviewed and are negative Physical Examination Vital Signs, Last 4 Hours Temp Pulse Resp BP Pulse Ox 05/30/18 11:20 98.3 F 85 14 108/71 97 Results 05/30/18 04:29 05/30/18 04:29 Lab Results 05/29/18 05/30/18 05/30/18 22:12 04:29 04:29 WBC 5.4 Hgb 13.5 Hct 39.0 Plt Count 152 INR Sodium 140 Potassium 3.6 Chloride 105 Carbon Dioxide 29 BUN 10 Creatinine 1.24 Glucose 132 H Calcium 9.3 Troponin I < 0.03 05/30/18 05/30/18 04:29 08:26 WBC Hgb Hct Plt Count INR 1.9 Sodium Potassium Chloride Carbon Dioxide BUN Creatinine Glucose Calcium Troponin I < 0.03
[2018-05-30] MEDS ORDERED: Isosorbide MONOnitrate (24 HR) 30 MG TAB.ER.24H PO SCH (11:45)
--- NOTE | 2018-05-30 16:26 | Discharge Summary ---
- NOTES TO OUTPATIENT PROVIDER Notes to Outpatient Provider: Follow with asbestos shingle inspector on OPD basis within 2- 3 days to get outpatient stress test. Follow with PCP within one week. Monitor blood pressure as nitrate was added. If any concern of blood pressures then contact PCP of cardiology Orders not resulted at time of discharge: Pending orders 05/31/18 04:00 PT/INR [Prothrombin Time INR] [COAG] AM 0400 06/01/18 04:00 PT/INR [Prothrombin Time INR] [COAG] AM 0400 Date of Encounter: 05/30/18 Time of Encounter: 16:23 - Discharge Diagnosis (1) Chest pain Priority: Primary Status: Suspected Assessment and Plan: No active chest pain at this time but had multiple risk factor therefore got admitted to rule out ACS. Troponin 3 has been negative with no acute finding in EKG. Auto Phone Installer consulted who discussed with pt proceeding with a stress test to rule out ischemic cause given his hx and no recent ischemic evaluation. But He had already eaten today and prefers to be discharged home and have a stress test as an outpt. Auto Phone Installer is okay with plan for outpt stress test since he has ruled out for ACS. Continue ASA, Statin, BB, ARB. Added Imdur 30mg daily. Qualifiers: Chest pain type: other chest pain Qualified Code(s): R07.89 - Other chest pain; R07.8 - Other chest pain (2) A-fib Priority: Secondary Status: Chronic Assessment and Plan: Chronic Afib on coumadin Currently rate controlled Continue home management Qualifiers: Atrial fibrillation type: chronic Qualified Code(s): I48.2 - Chronic atrial fibrillation (3) HTN (hypertension) Priority: Secondary Status: Chronic Assessment and Plan: Well controlled with low normal blood pressure.continue home antihypertensives. Continue to monitor blood pressure at home and inform PCP or asbestos shingle inspector if any concern Qualifiers: Hypertension type: essential hypertension Qualified Code(s): I10 - Essential (primary) hypertension (4) HLD (hyperlipidemia) Priority: Secondary Status: Chronic Assessment and Plan: continue statin Qualifiers: Hyperlipidemia type: unspecified Qualified Code(s): E78.5 - Hyperlipidemia , unspecified (5) CAD (coronary artery disease) Priority: Primary Status: Chronic Assessment and Plan: Status post CABG in 2011. Nuclear stress tests in 2014 negative for ischemia. Recent TTE August 2017 EF preserved. Patient will follow with his asbestos shingle inspector on OPD basis. No active chest pain at this time. Continue home medicine Qualifiers: Coronary Disease-Associated Artery/Lesion type: [place] artery [place] vs. transplanted heart: [place] heart Associated angina: without angina Qualified Code(s): I25.10 - Atherosclerotic heart disease of [place] coronary artery without angina pectoris (6) Hypokalemia Priority: Primary Status: Acute Assessment and Plan: Normal potassium level Hospital course: Mr. Lynch is a 58 year old male with history of CAD got admitted for chest pain rule out ACS. Troponin has been negative and chest pain resolved. Auto Phone Installer consulted and located to discharge home with outpatient stress test. Please see diagnosis section of discharge summary for details. Discharge discussed with: patient - Time Spent with Patient Total time spent providing and/or coordinating discharge services: - Discharge Medications Home Medications: Aspirin 81 mg PO DAILY 06/20/15 [History] Tamsulosin HCl [Flomax] 0.4 mg PO DAILY 08/18/16 [History] Albuterol Sulfate [Albuterol Inhaler] 2 puff IH Q4HR PRN #1 hfa.aer.ad 01/22/17 [Rx] Atorvastatin Calcium [Lipitor] 80 mg PO HS 09/13/17 [History] Omeprazole [PriLOSEC] 40 mg PO BIDAC #60 capsule.dr 09/16/17 [Rx] Fluticasone Propionate Nasal [Flonase] 1 mcg NS DAILY PRN 11/07/17 [History] Furosemide [Lasix] 40 mg PO DAILY 11/07/17 [History] Warfarin [Coumadin] 2 mg PO MOWEFRSA 11/07/17 [History] Warfarin [Coumadin] 4 mg PO SUTUTH 11/07/17 [History] Diltiazem CD (24hr) [Cardizem CD] 240 mg PO DAILY 05/29/18 [History] Ipratropium/Albuterol Neb [Duoneb] 3 ml IH Q6HR PRN 05/29/18 [History] Metoprolol Succinate [Toprol Xl] 25 mg PO QAM 05/29/18 [History] Sucralfate [Carafate] 1 gm PO BID 05/29/18 [History] Tizanidine HCl 4 mg PO Q8H PRN 05/29/18 [History] Valsartan [Valsartan] 40 mg PO DAILY 05/29/18 [History] Allergies/Adverse Reactions: 3 Allergy/AdvReac Type Severity Reaction Status Date / Time No Known Allergies Allergy Verified 05/29/18 16:09 Date of admission: 05/29/18 17:53 Primary care physician: Silver Choi DO Consults: 05/30/18 10:02 Consult to Cardiology [CONS] Routine Comment: Consulting Provider: [facility] [place] Reason for Consult: chest pain Call Completed: Yes - Constitutional Vitals: Temp Pulse Resp BP Pulse Ox 98.3 F 85 14 108/71 97 05/30/18 11:20 05/30/18 11:20 05/30/18 11:20 05/30/18 11:20 05/30/18 11:20 Exam: General appearance: No acute distress, A&O X 3 Head exam: Atraumatic Eye exam: EOMI, PERRLA ENT exam: Moist oral mucosa Neck nontender, supple Respiratory exam: Clear to auscultation bilaterally Cardiovascular exam: Regular rate and rhythm, no systolic murmur Abdominal exam: Soft, nontender, nondistended, positive bowel sounds Extremities exam: No calf tenderness, no pedal edema Present: Neurological exam: Grossly intact - Patient Status Disposition: Home, Self-Care Condition: Good Overall status at discharge: patient is back to baseline - Discharge Instructions Follow Up With: Silver Choi DO [Primary Care Provider] - - Diet and Activity Activity: as per the cardiac rehab Diet: low fat, low cholesterol, low salt diet
[2018-05-30 16:38] VITALS: BP 100/63
[2018-05-30] MEDS ORDERED: *HR* Warfarin 4 MG TABLET PO ONE (18:00)
[2018-05-30] MEDS ORDERED: Warfarin perPT PO PRN (18:00)
[2018-05-30] MEDS ORDERED: *HR* Warfarin 4 MG TABLET PO SCH (18:00)
--- NOTE | 2018-05-31 05:50 | Electrocardiograph Report ---
[facility] Test Date: 2018-05-29 Pat Name: Barry Lynch Department: [id number] Room: 2A36 Gender: M Film Reader: [facility] : 1960 Requested By: Silver Andrews Order Number: [id number] Reading MD: Candelaria Doherty Measurements Intervals [place] Rate: 77 P: GA: 0 QRS: 26 QRSD: 101 T: 12 QT: 412 QTc: 444 Interpretive Statements ATRIAL FIBRILLATION ABNORMAL RHYTHM ECG Electronically Signed On 05-31-2018 5:49:21 EDT by Candelaria Doherty
== END 2018-05-30 18:10 | disposition home or self-care (01) ==
LOC: 2ANU 16:03 → EMEROO 16:03 → 2ANU 19:14
PROVIDERS: ADMIT Pediatrics; ATTEND Pediatrics

== ENCOUNTER 2022-06-20 11:53 | Observation (INO) ==
[2022-06-20 13:35] LABS: Basophils # 0.1 K/mcL (0.0-0.2); Basophils % 0.6 %; Eosinophils # 0.1 K/mcL (0.0-0.6); Eosinophils % 0.9 %; Hematocrit 39.5 % (37.5-50.1); Hemoglobin 12.7 g/dL (12.9-16.9); Immature Granulocytes % 0.3 % (0-4); Lymphocytes # 0.8 K/mcL (0.6-4.6); Lymphocytes % 8.1 %; Mean Corpuscular HGB Conc 32.2 g/dL (31.6-35.5); Mean Corpuscular Hemoglobin 28.6 pg (28.0-33.3); Mean Platelet Volume 10.2 fL (9.4-12.4); Monocytes # 0.5 K/mcL (0.0-1.3); Monocytes % 5.5 %; Neutrophils # 8.2 K/mcL (1.6-8.9); Platelet Count 198 K/mcL (140-400); Red Blood Count 4.44 M/mcL (4.19-5.50); Red Cell Distribution Width 14.9 % (11.5-14.5); Segmented Neutrophils % 84.6 %; White Blood Count 9.8 K/mcL (4.3-11.1)
[2022-06-20 13:54] LABS: BUN/Creatinine Ratio 11 (6-26); Blood Urea Nitrogen 17 mg/dL (8-23); Calcium 9.8 mg/dL (8.6-10.3); Carbon Dioxide 28 mEq/L (23-29); Chloride 101 mEq/L (98-107); Glucose 142 mg/dL (70-105); Osmolality,Calculated 290 (280-300); Potassium 3.9 mEq/L (3.5-5.1); Sodium 138 mEq/L (136-145)
[2022-06-20 14:08] LABS: Influenza A PCR Negative (Negative); Influenza B PCR Negative (Negative); Resp. Syncytial Virus PCR Negative (Negative)
[2022-06-20 14:42] LABS: SARS-CoV-2 by PCR (In House) Negative (Negative)
[2022-06-20 16:05] LABS: Alanine Aminotransferase 32 Units/L (7-52); Albumin 4.6 g/dL (3.5-5.7); Albumin/Globulin Ratio 1.6 (1.1-2.2); Alkaline Phosphatase 81 Units/L (34-104); Aspartate Amino Transferase 28 Units/L (13-39); Bilirubin,Direct 0.2 mg/dL (0.0-0.2); Bilirubin,Indirect 0.9 mg/dL (0.0-1.0); Bilirubin,Total 1.1 mg/dL (0.3-1.0); Globulin 2.8 g/dL (2.4-3.5); Total Protein 7.4 g/dL (6.4-8.9)
[2022-06-20 16:12] LABS: Troponin I < 0.03 ng/mL (< 0.04)
[2022-06-20 17:38] LABS: ABG Base Excess 6 mEq/L (-2 to 3); ABG HCO3 29 mEq/L (21-27); ABG Oxygen Saturation 97 % (95-98); ABG PCO2 33 mmHg (35-45); ABG PH 7.55 pH Units (7.32-7.45); ABG PO2 76 mmHg (85-104); ABG TCO2 30 mEq/L (20-26)
[2022-06-20 17:44] LABS: Bacteria,Urine Few per hpf (None-Few); Hyaline Casts,Urine Few per lpf (None Seen); Mucus,Urine Few per lpf (None-Few); RBC,Urine 0-3 per hpf (0-3); Sperm,Urine Present per hpf (None Seen); WBC,Urine 0-3 per hpf (0-3)
[2022-06-20] MEDS ORDERED: Naloxone 0.4 MG/ML INJ IVP PRN (18:09)
[2022-06-20] MEDS ORDERED: Mag Hydrox/Al Hydrox/Simeth 30 ML UDC PO PRN (18:09)
[2022-06-20] MEDS ORDERED: MOM Conc 10 ML UD.LIQ PO PRN (18:09)
[2022-06-20] MEDS ORDERED: Melatonin 3 MG TABLET PO PRN (18:09)
[2022-06-20] MEDS ORDERED: Ondansetron ODT 4 MG TAB.RAPDIS SL PRN (18:09)
[2022-06-20 18:10] LABS: Bilirubin,Urine Negative (Negative); Blood,Urine Negative (Negative); Clarity,Urine Clear (Clear); Color,Urine Yellow (Yellow); Glucose,Urine (UA) Normal (Normal); Ketones,Urine Negative (Negative); Leukocyte Esterase,Urine Negative (Negative); Nitrite,Urine Negative (Negative); PH,Urine 5.5 pH Units (5.0-8.0); Protein,Urine Trace mg/dL (Neg-Trace); Specific Gravity,Urine 1.018 (1.010-1.025); Urobilinogen,Urine Normal (Normal)
[2022-06-20] MEDS ORDERED: D5% in Water 1,000 ML IVC PRN (18:12)
[2022-06-20] MEDS ORDERED: *HR* Dextrose 50 % in Water (Syg) 50 ML SYRINGE IVP PRN (18:12)
[2022-06-20] MEDS ORDERED: Dextrose Gel 15 GM/37.5 ML TUBE PO PRN ×2 (18:12)
[2022-06-20] MEDS ORDERED: Azithromycin 500 MG in 0.9 % Sodium Chloride 250 ML IVPB SCH (19:00)
[2022-06-20 19:56] LABS: INR 2.2; Prothrombin Time 24.5 Seconds (9.4-12.1)
[2022-06-20] MEDS ORDERED: *HR* Warfarin 2 MG TABLET PO ONE (20:05)
[2022-06-20] MEDS ORDERED: Insulin LISPRO 300 UNITS/3 ML VIAL SUBQ SCH (21:00)
[2022-06-20] MEDS: cefTRIAXone 1,000 MG in 0.9 % Sodium Chloride 10 ML IVPB SCH (21:29)
[2022-06-20] MEDS: Insulin LISPRO 300 UNITS/3 ML VIAL SUBQ SCH (21:41)
[2022-06-20] MEDS: Furosemide 40 MG TABLET PO SCH (21:45)
[2022-06-20 22:35] LABS: Estimated Average Glucose 128 mg/dl; Hemoglobin A1C 6.1 %
[2022-06-21 03:43] LABS: Basophils % 0.2 %; Eosinophils % 0.2 %; Hematocrit 35.2 % (37.5-50.1); Hemoglobin 11.5 g/dL (12.9-16.9); Immature Granulocytes % 0.5 % (0-4); Lymphocytes # 0.9 K/mcL (0.6-4.6); Lymphocytes % 14.9 %; Mean Corpuscular HGB Conc 32.7 g/dL (31.6-35.5); Mean Corpuscular Hemoglobin 29.3 pg (28.0-33.3); Mean Corpuscular Volume 89.6 fL (83.0-100.0); Mean Platelet Volume 10.9 fL (9.4-12.4); Monocytes # 0.2 K/mcL (0.0-1.3); Monocytes % 2.6 %; Neutrophils # 4.7 K/mcL (1.6-8.9); Nucleated Red Blood Cells 0.3 /100 WBC (0); Platelet Count 194 K/mcL (140-400); Red Blood Count 3.93 M/mcL (4.19-5.50); Segmented Neutrophils % 81.6 %; White Blood Count 5.8 K/mcL (4.3-11.1)
[2022-06-21 03:57] LABS: Prothrombin Time 22.3 Seconds (9.4-12.1)
[2022-06-21 04:07] LABS: Alanine Aminotransferase 26 Units/L (7-52); Albumin 4.1 g/dL (3.5-5.7); Albumin/Globulin Ratio 1.6 (1.1-2.2); Alkaline Phosphatase 66 Units/L (34-104); Aspartate Amino Transferase 27 Units/L (13-39); BUN/Creatinine Ratio 14 (6-26); Bilirubin,Total 0.7 mg/dL (0.3-1.0); Blood Urea Nitrogen 22 mg/dL (8-23); Calcium 9.3 mg/dL (8.6-10.3); Carbon Dioxide 24 mEq/L (23-29); Chloride 104 mEq/L (98-107); Globulin 2.5 g/dL (2.4-3.5); Glucose 186 mg/dL (70-105); Osmolality,Calculated 292 (280-300); Potassium 4.4 mEq/L (3.5-5.1); Sodium 137 mEq/L (136-145); Total Protein 6.6 g/dL (6.4-8.9); Troponin I < 0.03 ng/mL (< 0.04)
[2022-06-21] MEDS: Insulin LISPRO 300 UNITS/3 ML VIAL SUBQ SCH ×3 (07:19→15:49)
[2022-06-21] MEDS ORDERED: DilTIAZem CD (24hr) 240 MG CAP.ER.24H PO SCH (09:00)
[2022-06-21] MEDS ORDERED: Metoprolol XL (24 HR) Succ 25 MG TAB.ER.24H PO SCH (09:00)
[2022-06-21] MEDS ORDERED: Aspirin 81 MG TAB.CHEW PO SCH (09:00)
[2022-06-21] MEDS ORDERED: lisinopriL 5 MG TABLET PO SCH (09:00)
[2022-06-21] MEDS: cefTRIAXone 1,000 MG in 0.9 % Sodium Chloride 10 ML IVPB SCH (09:44)
[2022-06-21] MEDS: Furosemide 40 MG TABLET PO SCH (09:54)
[2022-06-21 15:06] VITALS: BP 114/77; PULSE 85; TEMP 97.6; O2SAT 96
[2022-06-21] MEDS ORDERED: Warfarin perPT PO PRN (18:00)
[2022-06-21] MEDS ORDERED: *HR* Warfarin 4 MG TABLET PO ONE (18:00)
== END 2022-06-21 16:15 | disposition home or self-care (01) ==
LOC: 3BNU 11:53 → EMEROOARM 11:53 → SUATTDRO 18:28 → 3BNU 19:57
PROVIDERS: ADMIT Internal Medicine; ATTEND Nurse Practitioner